=== PATIENT | female | born 1995 | race Caucasian/White ===

== ENCOUNTER 2024-05-20 12:46 | Outpatient (CLI) | payer BC, SELFPAY ==
--- NOTE | 2024-05-20 13:00 | CRLHL7_ITS ---
For Patients: As a result of the Century Cures Act, medical imaging exams and procedure reports are released immediately into your electronic medical record. You may view this report before your referring provider. If you have questions, please contact your health care provider. OB ULTRASOUND INDICATION: Dating and viability. TECHNIQUE: Real time tobias scale imaging of the fetus was performed. Transvaginal. LMP: Unknown (recent miscarriage before this cycle). Previous US: No. CRL: 2.1 cm. 8 w 5 d. DILIP: 12/25/2024. FHR: 183 BPM. Gestational sac: 3.8 cm. Appears within normal limits. Yolk sac: 4.2 mm. Right ovary: 3.5 x 2.6 x 3.3 cm. CL. Left ovary: 3.7 x 2.3 x 2.0 cm. IMPRESSION: 1. Single living intrauterine with sonographic gestational age 8 weeks 5 days and sonographic due date 12/25/2024. Exam performed by transvaginal technique. 2. Inferior subchorionic hemorrhage measures 1.8 x 1.2 x 3.0 cm. 3. Incidental corpus luteal cyst right ovary. Blair Gillespie M.D. Diagnostic Radiologist [email or web address] RAGHAV/[email or web address] delaney/Dictated by: Blair Gillespie MD @ 05/21/2024 9:57:00 AM (Electronically Signed)
== END 2024-05-20 12:47 | disposition home or self-care (01) ==
LOC: US 12:51
PROVIDERS: PCP Advanced Practice Midwife; Visit Provider Advanced Practice Midwife
DX: O34.81 Maternal care for other abnormalities of pelvic organs, first trimester (principal); O20.9 Hemorrhage in early pregnancy, unspecified; N83.11 Corpus luteum cyst of right ovary; Z3A.08 8 weeks gestation of pregnancy; F12.90 Cannabis use, unspecified, uncomplicated
CPT/HCPCS: 76817; 80306; 87086

== ENCOUNTER 2024-05-20 13:54 | Outpatient (CLI) | payer BC, SELFPAY | END 2024-05-20 13:55 | disposition home or self-care (01) | PROVIDERS: PCP Advanced Practice Midwife; Visit Provider Advanced Practice Midwife | DX: Z34.91 Encounter for supervision of normal pregnancy, unspecified, first trimester (principal); F12.90 Cannabis use, unspecified, uncomplicated | CPT/HCPCS: 80306; 87086 ==

== ENCOUNTER 2024-06-03 09:21 | Outpatient (CLI) | payer BC, SELFPAY | END 2024-06-03 09:22 | disposition home or self-care (01) | LOC: NFLDREF 06-07 03:03 | PROVIDERS: Visit Provider Advanced Practice Midwife | DX: O26.899 Other specified pregnancy related conditions, unspecified trimester (principal); R03.0 Elevated blood-pressure reading, without diagnosis of hypertension | CPT/HCPCS: 82565; 83020; 83021; 84450; 84460; 84520; 84550; 85660; 86592; 86703; 86704; 86706; 86762; 86787; 86803; 86850; 86900; 86901; 87340 ==

== ENCOUNTER 2024-06-28 10:15 | Outpatient (CLI) | payer BC, SELFPAY | END 2024-06-28 10:16 | disposition home or self-care (01) | LOC: NFLDREF 06-30 01:30 | PROVIDERS: Visit Provider Advanced Practice Midwife | DX: R03.0 Elevated blood-pressure reading, without diagnosis of hypertension (principal) | CPT/HCPCS: 82570; 84156 ==

== ENCOUNTER 2024-08-12 12:56 | Outpatient (CLI) | payer BC, SELFPAY ==
--- NOTE | 2024-08-12 13:00 | CRLHL7_ITS ---
For Patients: As a result of the Century Cures Act, medical imaging exams and procedure reports are released immediately into your electronic medical record. You may view this report before your referring provider. If you have questions, please contact your health care provider. INDICATION: survey TECHNIQUE: Conventional transabdominal two-dimensional grayscale ultrasound examination COMPARISON: None FINDINGS: There is a living fetus with gestational age of 20 weeks 5 days by 1st trimester ultrasound dating is 21 weeks 1 day by today`s measurements. EDC based on 1st trimester ultrasound dating is 12/25/2024. BPD: 5.2 cm, 21 weeks 6 days Head circumference: 18.9 cm, 21 weeks 1 day Abdominal circumference: 14.9 cm, 20 weeks 1 day Femur length: 3.7 cm, 21 weeks 4 days HC/AC: 1.27 The weight is estimated at 384 grams, the 55th percentile. The heart rate is measured at 144 beats per minute and the rhythm appears regular. The head is grossly intact. The spine is suboptimally visualized. The nose and upper lip are suboptimally visualized as is the heart. The heart and stomach appear to be on the same side. The diaphragm is intact. The kidneys are suboptimally visualized. A bladder is noted. The cord insertion is normal and three cord vessels are noted. Four extremities are demonstrated. The hands and feet are suboptimally visualized. The amniotic fluid volume is within normal limits. The placenta is anterior with no evidence of previa. The cervical length is normal at 4.4 cm. IMPRESSION: 1. Living fetus with gestational age of 20 weeks 5 days by 1st trimester ultrasound dating is 21 weeks 1 day by today`s measurements. EDC based on 1st trimester ultrasound dating is 12/25/2024. 2. No anomaly demonstrated. However, the spine, nose/lips, heart, kidneys, hands and feet suboptimally visualized. A limited follow up exam in 4 weeks is suggested. Dictated by Cristobal Brito MD @ 08/13/2024 6:00:06 AM (Electronically Signed)
== END 2024-08-12 12:57 | disposition home or self-care (01) ==
LOC: US 12:56
PROVIDERS: Visit Provider Obstetrics & Gynecology
DX: Z34.92 Encounter for supervision of normal pregnancy, unspecified, second trimester (principal); Z3A.21 21 weeks gestation of pregnancy
CPT/HCPCS: 76805

== ENCOUNTER 2024-08-25 19:20 | Outpatient (CLI) | payer BC, SELFPAY | END 2024-08-25 20:04 | disposition home or self-care (01) | LOC: OB CLI 19:21 → OB 19:22 | PROVIDERS: Visit Provider Obstetrics & Gynecology | DX: O36.8320 Maternal care for abnormalities of the fetal heart rate or rhythm, second trimester, not applicable or unspecified (principal); Z3A.22 22 weeks gestation of pregnancy | CPT/HCPCS: 76815; G0463 ==

== ENCOUNTER 2024-09-09 11:12 | Outpatient (CLI) | payer BC, SELFPAY ==
--- NOTE | 2024-09-09 11:15 | CRLHL7_ITS ---
For Patients: As a result of the Century Cures Act, medical imaging exams and procedure reports are released immediately into your electronic medical record. You may view this report before your referring provider. If you have questions, please contact your health care provider. OB ULTRASOUND FOLLOW-UP. 09/09/2024 CLINICAL HISTORY: Follow-up anatomy. COMPARISON: 08/12/2024, 05/20/2024. TECHNIQUE: Real time tobias scale imaging of the fetus was performed transabdominally. FINDINGS: GESTATION: Single. CERVIX: Visualized. POSITIONING: Vertex. AMNIOTIC FLUID: 3.2 cm SDP. PLACENTA: Technique: TA. Placenta Position: Anterior. DOPPLERS: Heart Rate: 145 bpm. IMPRESSION: 1. Normal heart, including the four chamber view, RVOT, LVOT, three vessel view and three vessel trachea view. 2. Normal feet, kidneys, spine, nose and lips. Normal visualized hands. Blair Gillespie M.D. Diagnostic Radiologist [email or web address] Transcribed: 2:32 pm DW/Dictated by: Blair Gillespie MD @ 09/09/2024 1:43:00 PM (Electronically Signed)
== END 2024-09-09 11:13 | disposition home or self-care (01) ==
LOC: US 11:13
PROVIDERS: Visit Provider Obstetrics & Gynecology
DX: Z36.2 Encounter for other antenatal screening follow-up (principal)
CPT/HCPCS: 76816

== ENCOUNTER 2024-10-07 11:29 | Outpatient (CLI) | payer BC, SELFPAY ==
--- NOTE | 2024-10-07 11:15 | CRLHL7_ITS ---
For Patients: As a result of the Century Cures Act, medical imaging exams and procedure reports are released immediately into your electronic medical record. You may view this report before your referring provider. If you have questions, please contact your health care provider. OB ULTRASOUND, 10/07/2024 DILIP by US: 12/25/2024. GA: 28 w, 5 d. Single. Comparison: 09/09/2024, 08/12/2024, 05/20/2024. INDICATION: Growth for the THC, nicotine use, BMI. TECHNIQUE: Real time tobias scale imaging of the fetus was performed. Transabdominal. CERVIX: Not visualized. POSITIONING: Vertex. AMNIOTIC FLUID: 4.8 cm. SDP (N: greater than 2 x 1 cm) PLACENTA: Technique: Transabdominal. PLACENTA POSITION: Anterior. DOPPLER: heart rate: 147 bpm. BIOMETRY: BPD: 7.7 cm. 30 w, 5 d, 91.5 percent. HC: 28.6 cm. 31 w, 3 d, 90.6 percent. AC: 26.7 cm. 30 w, 6 d, 93.4 percent. FL: 5.8 cm. 30 w, 2 d, 80.0 percent. FL/AC ratio: 21.71 percent. HC/AC ratio: 1.07. EFW: 1627 g. Weight: 3 lbs, 9 oz. age by this US: 30 w, 6 d. DILIP by this US: 12/10/2024. Percentile by DILIP: 96.1 percent. IMPRESSION: 1. Sonographic gestational age 30 weeks 6 days and sonographic due date 12/10/2024. Sonographic age is 15 days ahead of the clinical age. 2. Estimated weight 96th percentile. Abdominal circumference 93rd percentile. Blair Gillespie M.D. Diagnostic Radiologist [email or web address] RAGHAV/[email or web address] JR/Dictated by: Blair Gillespie MD @ 10/11/2024 5:45:00 AM (Electronically Signed)
== END 2024-10-07 11:30 | disposition home or self-care (01) ==
PROVIDERS: Visit Provider Obstetrics & Gynecology
DX: O99.323 Drug use complicating pregnancy, third trimester (principal); F12.10 Cannabis abuse, uncomplicated; O99.213 Obesity complicating pregnancy, third trimester; O36.63X0 Maternal care for excessive fetal growth, third trimester, not applicable or unspecified; Z72.0 Tobacco use; Z3A.28 28 weeks gestation of pregnancy
CPT/HCPCS: 76816

== ENCOUNTER 2024-10-07 12:16 | Outpatient (CLI) | payer BC, SELFPAY | END 2024-10-07 12:17 | disposition home or self-care (01) | PROVIDERS: Visit Provider Obstetrics & Gynecology | DX: O26.893 Other specified pregnancy related conditions, third trimester (principal); R03.0 Elevated blood-pressure reading, without diagnosis of hypertension; Z3A.28 28 weeks gestation of pregnancy | CPT/HCPCS: 82565; 82570; 84156; 84450; 84460; 84520; 86592 ==

== ENCOUNTER 2024-10-12 13:28 | Outpatient (CLI) | payer BC, SELFPAY ==
--- NOTE | 2024-10-12 13:45 | CRLHL7_ITS ---
For Patients: As a result of the Century Cures Act, medical imaging exams and procedure reports are released immediately into your electronic medical record. You may view this report before your referring provider. If you have questions, please contact your health care provider. INDICATION: BMI TECHNIQUE: Ultrasound OB pelvis transabdominal. Real-time tobias-scale imaging of the fetus was performed with color Doppler and spectral Doppler analysis of the umbilical artery without stress testing. COMPARISON: 10/07/2024 FINDINGS: Sonographic imaging demonstrates a single living intrauterine gestation. Fetus demonstrates a regular cardiac rate of 142 beats per minute. Fetus has a cephalic orientation. The placenta lies anterior. Amniotic fluid volume appears normal with a MVP of 3.7 cm. breathing movements, motion, and tone were all observed. IMPRESSION: Single viable intrauterine with a biophysical profile 12/10. Dictated by Ranjit Proctor MD @ 10/12/2024 3:15:57 PM (Electronically Signed)
== END 2024-10-12 13:29 | disposition home or self-care (01) ==
LOC: US 13:29
PROVIDERS: Visit Provider Obstetrics & Gynecology
DX: O99.210 Obesity complicating pregnancy, unspecified trimester (principal); Z68.41 Body mass index [BMI] 40.0-44.9, adult
CPT/HCPCS: 76819; 82565; 84450; 84460

== ENCOUNTER 2024-10-18 10:13 | Outpatient (CLI) | payer BC, SELFPAY | END 2024-10-18 10:14 | disposition home or self-care (01) | LOC: NFLDREF 10-22 01:21 | PROVIDERS: Visit Provider Obstetrics & Gynecology | DX: O10.913 Unspecified pre-existing hypertension complicating pregnancy, third trimester (principal); Z3A.30 30 weeks gestation of pregnancy | CPT/HCPCS: 82570; 84156 ==

== ENCOUNTER 2024-10-19 13:52 | Outpatient (CLI) | payer BC, SELFPAY ==
--- NOTE | 2024-10-19 14:00 | CRLHL7_ITS ---
For Patients: As a result of the Cures Act, medical imaging exams and procedure reports are released immediately into your electronic medical record. You may view this report before your referring provider. If you have questions, please contact your health care provider. OB ULTRASOUND DILIP by US: 12/25/2024. GA: 30 w, 3 d. Single. Comparison: 10/12/2024, 10/07/2024, 09/09/2024. INDICATION: High BMI and preeclampsia. TECHNIQUE: Real time grayscale imaging of the fetus was performed. Transabdominal. CERVIX: Not visualized. POSITIONING: Vertex. AMNIOTIC FLUID: 2.4 cm. SDP (N: greater than 2 x 1 cm) BIOPHYSICAL PROFILE: 2: Gross body movements 2: tone 2: Respiratory activity 2: Amniotic fluid SDP (N: greater than 2 x 1 cm) 8/8: Total score PLACENTA: Technique: Transabdominal. PLACENTA POSITION: Anterior. DOPPLER: heart rate: 152 bpm. IMPRESSION: Normal biophysical profile score 8/8. Blair Gillespie M.D. Diagnostic Radiologist [email or web address] RAGHAV/[email or web address] delaney/Dictated by: Blair Gillespie MD @ 10/20/2024 7:31:00 AM (Electronically Signed)
== END 2024-10-19 13:53 | disposition home or self-care (01) ==
LOC: US 13:52
PROVIDERS: Visit Provider Obstetrics & Gynecology
DX: O14.93 Unspecified pre-eclampsia, third trimester (principal); Z3A.30 30 weeks gestation of pregnancy
CPT/HCPCS: 76819; 82565; 84450; 84460

== ENCOUNTER 2024-10-26 11:32 | Outpatient (CLI) | payer BC, SELFPAY ==
--- NOTE | 2024-10-26 11:30 | CRLHL7_ITS ---
For Patients: As a result of the Century Cures Act, medical imaging exams and procedure reports are released immediately into your electronic medical record. You may view this report before your referring provider. If you have questions, please contact your health care provider. OB ULTRASOUND BIOPHYSICAL PROFILE DILIP by US: 12/25/2024. GA: 31 w, 3 d. Single. Comparison: 10/19/2024, 10/12/2024, 10/07/2024. INDICATION: Preclampsia and BMI 44.0-44.9. TECHNIQUE: Real time tobias scale imaging of the fetus was performed. Transabdominal. CERVIX: Not visualized. POSITIONING: Vertex. AMNIOTIC FLUID: 4.3 cm. SDP (N: greater than 2 x 1 cm) BIOPHYSICAL PROFILE: Total score: 2. Gross body movements: 2. tone: 2. Respiratory activity: 2. Amniotic fluid: 2. (SDP N: greater than 2 x 1 cm) Total Score: 8/8. PLACENTA: Technique: Transabdominal. PLACENTA POSITION: Anterior. DOPPLER: heart rate: 145 bpm. SURVEY: Observed Structures. Head: Yes. Face: Yes. Spine: Yes. Stomach: Yes. Kidneys: Yes. Cord insertion: Yes. Bladder: Yes. Upper extremities: Yes. Lower extremities: Yes. Four chamber heart: Yes LVOT: Yes. RVOT: Yes. 3VV: Yes. 3VTV: Yes. Cord into PL location: Yes. INT OS to Placenta Tip: Yes. IMPRESSION: Biophysical profile 12/10. Blair Gillespie M.D. Diagnostic Radiologist [email or web address] RAGHAV/[email or web address] JR/Dictated by: Blair Gillespie MD @ 10/26/2024 12:40:00 PM (Electronically Signed)
--- OUTSIDE RECORDS SUMMARY | 2024-10-26 12:34 | XMS_ITS | Clinical Summary ---
Author Organization [facility] Address [address] [place] [address] Care Team Providers Care Wire Brush Maker Name Role Phone Giana Pham MD Primary Care Provider [phone] Allergies Active Allergy Reactions Criticality Noted Date Comments Amoxicillin Rash 07/15/2006 Sulfamethoxazole-Trimethoprim Itching 2014 Penicillins Hives 10/15/2006 Medications ondansetron (ZOFRAN) 8 mg tabletIndications :Acute intractable headache, unspecified headache type Take 1 Tablet (8 mg) by mouth every 8 hours if needed for Nausea/Vomitin g. 30 Tablet 3 Active levalbuterol (XOPENEX HFA) 45 mcg/actuation inhalerIndication s:Environmental allergies INHALE 1 TO 2 PUFFS BY MOUTH EVERY 4 HOURS NEEDED FOR SHORTNESS OF BREATH FOR WHEEZING 1 Each 3 Active fluticasone propion-salmetero L (Advair Diskus) 250-50 mcg/Dose diskus inhalerIndication s:Mild persistent asthma with exacerbation (HC) Inhale 1 Puff by mouth two times daily. 60 Each 3 Active varenicline (CHANTIX DOSEPAK) 0.5 mg (11)- 1 mg (42) tabletIndications :Tobacco use Days 1-3 take 0.5mg once daily; Days 4-7 take 0.5mg twice daily; then increase to 1mg twice daily. Take with meals. 1 Packet 3 Active varenicline (CHANTIX) 1 mg tabletIndications :Tobacco use Take 1 mg by mouth two times daily with meals. 84 Tablet 1 3 Active aspirin (ECOTRIN) 81 mg enteric coated tablet Take 81 mg by mouth once daily. Active Active Problems Problem Noted Date Diagnosed Date ASCUS of cervix with negative high risk HPV 03/06 Overview (04/20/2021): 03/30/2021 ASCUS/HPV Negative. Plan: Pap/HPV due 03/2024 Irregular menses 05/27/2018 Major depression 07/06/2013 Estimated Date of Delivery Comme nts Yes 12/25/2024 Resolved Problems Problem Noted Date Diagnosed Date Resolved Date IUD contraception 01/27/2015 11/13/2017 Post depression 10/07/201405/27 Breech presentation, antepartum 09/21/2014 10/07/2014 Two vessel umbilical cord, antepartum 09/21/2014 10/07/2014 Supervision of other normal 04/19/2014 10/07/2014 Overview (09/05/2014): First : teen: care started at 20 weeks 2 vessel cord: confirmed by MFM at 28 weeks: growth ultrasounds recommended, testing at 32 weeks. 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 cleared 09/05/2014 No active medical problems 08/29/2011 1 Immunizations Immunization Administration Dates Next Due COVID-19 vaccine ([employer] NTech 30mcg/0.3mL) PF, MDV 06/24/2020,06/01/2020 DTP 01/13/2001, 8,1996,07/09,1996 HIB PRP-OMP (PedvaxHIB) 06/28/1997,09/10,1996,05/14 Hepatitis B (Peds) 10/15/2006, 7,1996,03/12 Influenza, IIV3 (Age >=3 years) 04/27/2012 Influenza, IIV4 03/30/2021,03/06/2020 MMR 10/15/2006,01/13/2001,03/16/1997 Meningococcal Vaccine (Menactra) 04/27/2012 Oral Polio Vaccine 01/13/2001, 8,1996,07/09,1996 Tdap 08/03/2014,10/15/2006 Varicella Vaccine 03/08/2010,06/28/1997 Family History Medical History Relation Name Comments Diabetes Father Diabetes Mother Hypertension Mother Other Mother depression, cecile izophrenia Relation Name Status Comments Daughter Alive Father Alive Maternal Grandmother Alive Mother Alive Social History Tobacco Use Types Packs/Day Years Used Date Smoking Tobacco: Every Day Cigarettes 1 10.6 Started: 04/04/2014 Smokeless Tobacco: Never Tobacco Cessation:Ready to Q uit: Yes; Counseling Given: Yes Comments:advised to see pcp when ready Alcohol Use Standard Drinks/Week Comments Yes 0 (1 standard drink = 0.6 oz pur e alcohol) occ PHQ-2 Answer Date Recorded PHQ-2 TOTAL SCORE 0 02/11/2023 Social Connections Answer Date Recorded Frequency of Communication with Friends and Fami ly 0 06/13/2022 Financial Resource Strain Answer Date R ecorded Difficulty of Paying Living Expenses 3 06/13/2022 Difficulty of Paying Living Expenses Not on file 06/13/2022 Food Insecurity Answer Date Recorded Worried About Running Out of Food in the Last Ye ar 1 06/13/2022 Transportation Needs Answer Date Record ed Lack of Transportation (Medical) 1 06/13/2022 Housing Stability Answer Date Recorded Unable to Pay for Housing in the Last Year 1 06/13/2022 Estimated Date of Delivery Comme nts Yes 12/25/2024 Sex and Gender Information Value Date Recorded Sex Assigned at Not on file Legal Sex Female 5:39 AM SALES ENGINEER ACCOUNT MANAGER Gender Identity Not on file Sexual Orientation Not on file Occupation Industry Job Start Date Job End Date [employer] student Not on file Not on file Not on file Not on file Not on file Not on file Not on file Obstetrics History Para Term AB IAB SAB Ectopic Multiple Livin g Live Births 2 1 1 1 1 Date Outcome GA Total Labor Labor/2nd/3rd Weight Sex Type Anes PTL Iliana A1 A5 Name Clin 015 Term 39w 0d 3.23 kg (7 lb 2 oz) F C-Sec tion Living 9 10 BG JULIET(Viridiana MEJIA ) Delivery Location:[facility] Current Last Filed Vital Signs Vital Sign Reading Time Taken Comments Blood Pressure 131/63 07/08/2024 12:13 PM SALES ENGINEER ACCOUNT MANAGER Pulse 104 07/08/2024 12:13 PM SALES ENGINEER ACCOUNT MANAGER Temperature 36.6 C (97.9 F) 07/08/2024 12:13 PM SALES ENGINEER ACCOUNT MANAGER Respiratory Rate 20 07/08/2024 12:1 3 PM SALES ENGINEER ACCOUNT MANAGER Oxygen Saturation 96% 07/08/2024 12: 13 PM SALES ENGINEER ACCOUNT MANAGER Inhaled Oxygen Concentration - - Weight 109.5 kg (241 lb 6.4 oz) 025 12:13 PM SALES ENGINEER ACCOUNT MANAGER Height 167.6 cm (5' 6) 02/11/2023 3:12 PM CDT Body Mass Index 38.96 02/11/2023 3:12 PM CDT Plan of Treatment Health Maintenance Due Date Last Done Comments Hepatitis C screening for ag e 18-79 2014 Pneumococcal series for age 6-49 (1 of 2 - PCV) 2015 COVID-19 vaccine series ( season) 2024 06/24/2020, 06/01/2020 BMI (ht and wt on same day) for age 18+ 02/12/2024 02/11/2023, 10/15/2022, 09/10/2021, Additional history exists Depression screening for age 12+ 02/12/2024 02/11/2023, 05/08/2021, 03/30/2021, Additional history exists Pap test for age 21-65 03/30/2024 , 03/30/2021, 11/13/2017 Tetanus booster 08/03/2024 08/03/2014, 10/15/2006 Influenza Vaccine (Season Ended) 2025 03/30/2021, 03/06/2020, 04/27/2012 Hepatitis B series for 19+ Completed 10/15, 1996, 1996, Additional history exists HIV for age 15-65 Completed 05/20/2014 Tdap Completed 08/03/2014, 10/15/2006 RSV vaccine for adults or (No Doses Required) Completed Goals Goal Patient Goal Type Associated Problems Recent Progress Patient-Stated? Author BLOOD PRESSURE - MAINTAINS BP less than 140/90 Blood Pressure No Eduard Garduno MD Procedures Procedure Name Priority Date/Time Associated Diagnosis Comments HPV HIGH RISK Routine 03/30/2021 11:51 AM SALES ENGINEER ACCOUNT MANAGER Screening for malignant neoplasm of cervix ANTI HIV 1/2 Routine 05/20/2014 3:12 PM SALES ENGINEER ACCOUNT MANAGER Supervision of other normal (HC) from Last 3 Months or Most Recently Relevant to Health Maintenance Results * HPV HIGH RISK (03/30/2021 11:51 AM SALES ENGINEER ACCOUNT MANAGER) TYPE 16 Negative Negative 04/17/2021 11:25 AM SALES ENGINEER ACCOUNT MANAGER [facility] TYPE 18 Negative Negative 04/17/2021 11:25 AM SALES ENGINEER ACCOUNT MANAGER [facility] OTHER HIGH RISK TYPES Negative Negative 04/17/2021 11:25 AM SALES ENGINEER ACCOUNT MANAGER [facility] Other (Cervical) Non-Blood / Unknown 03/30/2021 11:51 AM SALES ENGINEER ACCOUNT MANAGER 04/16/2021 10:21 AM SALES ENGINEER ACCOUNT MANAGER Narrative [facility] - 04/17/2021 11:25 AM SALES ENGINEER ACCOUNT MANAGER HPV types 16, 18, 31, 33, 35, 39, 45, 51, 52, 56, 58, 59, 66 and 68 DNA were undetectable or below the pre-set threshold. Methodology: Ag Autumn 4800 HPV Test us Giana Pham MD MICROBIOLOGY Final Resu lt [facility] [address] [place] [address], [place] * ANTI HIV 1/2 [21798.0] (05/20/2014 3:12 PM SALES ENGINEER ACCOUNT MANAGER) HIV-1/HIV-2 ANTIBODY Non-Reacti ve Non-Reacti ve 05/20/2014 8:13 PM SALES ENGINEER ACCOUNT MANAGER [facility] Blood specimen (specimen) BLOOD SPECIMEN / Unknown Venipuncture / Unknown 05/20/2014 3:12 PM SALES ENGINEER ACCOUNT MANAGER 05/20/2014 3:12 PM SALES ENGINEER ACCOUNT MANAGER Narrative [facility] - 05/20/2014 8:13 PM SALES ENGINEER ACCOUNT MANAGER HIV-1 p24 and HIV-1/HIV-2 Ab not detected us Giana Pham MD SEND OUTS Final Resu lt [facility] [address] [place] [address], from Last 3 Months or Most Recently Relevant to Health Maintenance Insurance [facility] Advance Directives * Full Code (Latest Code Status on File) Date Activated Date Inactivated Comments 05/31/2021 8:01 AM 05/31/2021 3:16 PM Question Answer Comments Code Status Discussion: Reviewed Preferences * Full Code Date Activated Date Inactivated Comments 09/23/2014 5:35 AM 09/26/2014 12:41 PM * Full Code Date Activated Date Inactivated Comments 06/03/2014 5:35 PM 06/04/2014 5:40 AM * Full Code Date Activated Date Inactivated Comments 05/30/2014 10:27 AM 05/30/2014 2:29 PM Care Teams Wire Brush Maker Relationship Specialty Start Date End Date Giana Pham MD [address] [facility] [place] [address] PCP - General Family Practice 04/18/14
--- OUTSIDE RECORDS SUMMARY | 2024-10-27 01:02 | XMS_ITS | Clinical Summary ---
Author Organization [facility] Address [address] [place] [address] Care Team Providers Care Golf Caddy Name Role Phone Giana Pham MD Primary Care Provider +1- [phone] Allergies Active Allergy Reactions Criticality Noted Date [...] Immunization Administration Dates Next Due COVID-19 vaccine ([employer] NTech 30mcg/0.3mL) PF, MDV 06/24/2020,06/01/2020 DTP 01/13/2001, [...] on file Legal Sex Female 5:39 AM BED MANAGER Gender Identity Not on file Sexual [...] 9 10 BG JULIET(Viridiana MEJIA ) Delivery Location[facility] Current Last Filed Vital Signs Vital Sign Reading Time Taken Comments Blood Pressure 131/63 07/08/2024 12:13 PM BED MANAGER Pulse 104 07/08/2024 12:13 PM BED MANAGER Temperature 36.6 C (97.9 F) 07/08/2024 12:13 PM BED MANAGER Respiratory Rate 20 07/08/2024 12:1 3 PM BED MANAGER Oxygen Saturation 96% 07/08/2024 12: 13 PM BED MANAGER Inhaled Oxygen Concentration - - Weight 109.5 kg (241 lb 6.4 oz) 025 12:13 PM BED MANAGER Height 167.6 cm (5' 6) 02/11/2023 [...] HPV HIGH RISK Routine 03/30/2021 11:51 AM BED MANAGER Screening for malignant neoplasm of cervix ANTI HIV 1/2 Routine 05/20/2014 3:12 PM BED MANAGER Supervision of other normal (HC) from Last 3 Months or Most Recently Relevant to Health Maintenance Results * HPV HIGH RISK (03/30/2021 11:51 AM BED MANAGER) TYPE 16 Negative Negative 04/17/2021 11:25 AM BED MANAGER [facility] TYPE 18 Negative Negative 04/17/2021 11:25 AM BED MANAGER [facility] OTHER HIGH RISK TYPES Negative Negative 04/17/2021 11:25 AM BED MANAGER [facility] Other (Cervical) Non-Blood / Unknown 03/30/2021 11:51 AM BED MANAGER 04/16/2021 10:21 AM BED MANAGER Narrative [facility] - 04/17/2021 11:25 AM BED MANAGER HPV types 16, 18, 31, 33, 35, 39, 45, 51, 52, 56, 58, 59, 66 and 68 DNA were undetectable or below the pre-set threshold. Methodology: Ag Autumn 4800 HPV Test us Giana Pham MD MICROBIOLOGY Final Resu lt [facility] [address] [place] [address], [place] * ANTI HIV 1/2 [85748.0] (05/20/2014 3:12 PM BED MANAGER) HIV-1/HIV-2 ANTIBODY Non-Reacti ve Non-Reacti ve 05/20/2014 8:13 PM BED MANAGER [facility] Blood specimen (specimen) BLOOD SPECIMEN / Unknown Venipuncture / Unknown 05/20/2014 3:12 PM BED MANAGER 05/20/2014 3:12 PM BED MANAGER Narrative [facility] - 05/20/2014 8:13 PM BED MANAGER HIV-1 p24 and HIV-1/HIV-2 Ab not detected us Giana Pahm MD SEND OUTS Final Resu lt [facility] [address] [place] [address], from Last 3 Months or Most Recently Relevant to Health Maintenance Insurance [facility] Advance Directives * Full Code (Latest Code [...] 10:27 AM 05/30/2014 2:29 PM Care Teams Golf Caddy Relationship Specialty Start Date End Date Giana Pham MD [address] [facility] [place] [address] PCP - General Family Practice 04/18/14
== END 2024-10-26 11:33 | disposition home or self-care (01) ==
LOC: US 11:32
PROVIDERS: Visit Provider Obstetrics & Gynecology
DX: O14.93 Unspecified pre-eclampsia, third trimester (principal); O99.213 Obesity complicating pregnancy, third trimester; Z3A.31 31 weeks gestation of pregnancy
CPT/HCPCS: 76819; 82565; 84450; 84460

== ENCOUNTER 2024-11-02 12:45 | Outpatient (CLI) | payer BC, SELFPAY | END 2024-11-02 12:46 | disposition home or self-care (01) | LOC: NFLDREF 11-06 00:38 | PROVIDERS: Visit Provider Obstetrics & Gynecology | DX: O10.913 Unspecified pre-existing hypertension complicating pregnancy, third trimester (principal); Z3A.32 32 weeks gestation of pregnancy | CPT/HCPCS: 82565; 84450; 84460 ==

== ENCOUNTER 2024-11-02 12:48 | Outpatient (CLI) | payer BC, SELFPAY ==
--- NOTE | 2024-11-02 13:00 | CRLHL7_ITS ---
For Patients: As a result of the Cures Act, medical imaging exams and procedure reports are released immediately into your electronic medical record. You may view this report before your referring provider. If you have questions, please contact your health care provider. OBSTETRICAL ULTRASOUND ??? BIOPHYSICAL PROFILE, 11/02/2024 INDICATION: Preeclampsia and high BMI. CLINICAL HISTORY: DILIP by US: 12/25/2024 Gestational Age: 32 weeks 3 days COMPARISON: 10/26/2024, 10/19/2024, 10/12/2024. TECHNIQUE: Real-time tobias-scale transabdominal imaging of the fetus was performed. FINDINGS: Fetus: Single Cervix: Not visualized positioning: Vertex Amniotic Fluid: 4.2 cm SDP BIOPHYSICAL PROFILE: Gross body movements: 2 tone: 2 Respiratory activity: 2 Amniotic fluid SDP: 2 Total score: 8 Placenta technique: Transabdominal Placenta position: Anterior heart rate: 134 bpm BIOMETRY: BPD: 8.5 cm, 34 weeks 2 days, 90.2% HC: 30.7 cm, 34 weeks 1 day, 59.5% AC: 31.9 cm, 35 weeks 6 days, >97% FL: 6.1 cm, 31 weeks 3 days, 14.7% FL/AC Ratio: 18.9% HC/AC ratio: 1.0 EFW: 2415 grams; 5 lbs. 5 oz. age by this ultrasound: 34 weeks 0 days DILIP by this ultrasound: 12/14/2024 Percentile by DILIP: 92.5% IMPRESSION: 1. Sonographic gestational age 34 weeks 0 days and sonographic due date 12/14/2024. Sonographic age is 11 days ahead of the clinical age. 2. Estimated weight is 93rd percentile. Abdominal circumference is greater than 97th percentile. 3. Normal biophysical profile score of 8/8. BLAIR GAUTHIER M.D. Diagnostic Radiologist [email or web address] Transcribed: 5:[address]/Dictated by: Blair Gauthier MD @ 11/02/2024 4:09:00 PM (Electronically Signed)
--- OUTSIDE RECORDS SUMMARY | 2024-11-03 00:46 | XMS_ITS | Clinical Summary ---
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 Gender Identity Not on file Sexual Orientation [...] 9 10 BG JULIET(Viridiana MEJIA ) Delivery Location:[facility] Current Last Filed Vital Signs Vital Sign Reading Time Taken Comments Blood Pressure 131/63 07/08/2024 12:13 PM HOOP DRIVING MACHINE OPERATOR Pulse 104 07/08/2024 12:13 PM HOOP DRIVING MACHINE OPERATOR Temperature 36.6 C (97.9 F) 07/08/2024 12:13 PM HOOP DRIVING MACHINE OPERATOR Respiratory Rate 20 07/08/2024 12:1 3 PM HOOP DRIVING MACHINE OPERATOR Oxygen Saturation 96% 07/08/2024 12: 13 PM HOOP DRIVING MACHINE OPERATOR Inhaled Oxygen Concentration - - Weight 109.5 kg (241 lb 6.4 oz) 025 12:13 PM HOOP DRIVING MACHINE OPERATOR Height 167.6 cm (5' 6) 02/11/2023 3:12 [...] Tetanus booster 08/03/2024 08/03/2014, 10/15/2006 Influenza Vaccine (#1) 2025 1, 03/06/2020, 04/27/2012 Hepatitis B series for 19+ Completed 10/15, 1996, 1996, Additional history exists HIV for age 15-65 Completed 05/20/2014 (IA) Tdap Completed 08/03/2014, 10/15/2006 RSV vaccine for adults or (No Doses Required) Completed Goals Goal Patient Goal Type Associated Problems Recent Progress Patient-Stated? 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 DRIVING MACHINE OPERATOR Screening for malignant neoplasm of cervix ANTI HIV 1/2 Routine 05/20/2014 3:12 PM HOOP DRIVING MACHINE OPERATOR Supervision of other normal (HC) from Last 3 Months or Most Recently Relevant to Health Maintenance Results * HPV HIGH RISK (03/30/2021 11:51 AM HOOP DRIVING MACHINE OPERATOR) TYPE 16 Negative Negative 04/17/2021 11:25 AM HOOP DRIVING MACHINE OPERATOR [facility] TYPE 18 Negative Negative 04/17/2021 11:25 AM HOOP DRIVING MACHINE OPERATOR [facility] OTHER HIGH RISK TYPES Negative Negative 04/17/2021 11:25 AM HOOP DRIVING MACHINE [facility]PER[facility] Other (Cervical) Non-Blood / Unknown 03/30/2021 11:51 AM HOOP DRIVING MACHINE OPERATOR 04/16/2021 10:21 AM HOOP DRIVING MACHINE OPERATOR Narrative [facility] - 04/17/2021 11:25 AM HOOP DRIVING MACHINE OPERATOR HPV types 16, 18, 31, 33, 35, 39, 45, 51, 52, 56, 58, 59, 66 and 68 DNA were undetectable or below the pre-set threshold. Methodology: Ag Autumn 4800 HPV Test us Giana Pham MD MICROBIOLOGY Final Resu lt [facility] [address] [place] [address], [place] * ANTI HIV 1/2 [85345.0] (05/20/2014 3:12 PM HOOP DRIVING MACHINE OPERATOR) HIV-1/HIV-2 ANTIBODY Non-Reacti ve Non-Reacti ve 05/20/2014 8:13 PM HOOP DRIVING MACHINE OPERATOR [facility] Blood specimen (specimen) BLOOD SPECIMEN / Unknown Venipuncture / Unknown 05/20/2014 3:12 PM HOOP DRIVING MACHINE OPERATOR 05/20/2014 3:12 PM HOOP DRIVING MACHINE OPERATOR Narrative [facility] - 05/20/2014 8:13 PM HOOP DRIVING MACHINE OPERATOR HIV-1 p24 and HIV-1/HIV-2 Ab not detected us Giana Pham MD SEND OUTS Final Resu lt [facility] [address] [place] [address], from Last 3 Months or Most Recently Relevant to Health Maintenance Insurance [facility] [address] [place] [id number] Advance Directives * Full Code (Latest Code [...] 10:27 AM 05/30/2014 2:29 PM Care Teams Railroad Car Cleaner Relationship Specialty Start Date End Date Giana Pham [facility] [address] [facility] [address] PCP - General Family Practice 04/18/14
== END 2024-11-02 12:49 | disposition home or self-care (01) ==
LOC: US 12:49
PROVIDERS: Visit Provider Obstetrics & Gynecology
DX: O99.213 Obesity complicating pregnancy, third trimester (principal); Z68.41 Body mass index [BMI] 40.0-44.9, adult; O14.93 Unspecified pre-eclampsia, third trimester; O36.63X0 Maternal care for excessive fetal growth, third trimester, not applicable or unspecified; Z3A.32 32 weeks gestation of pregnancy
CPT/HCPCS: 76816; 76819

== ENCOUNTER 2024-11-08 13:14 | Outpatient (CLI) | payer BC, SELFPAY ==
[2024-11-08 13:29] VITALS: BP 134/71; PULSE 103
[2024-11-08 13:42] VITALS: BP 136/70; PULSE 100
[2024-11-08] MEDS: ACETAMINOPHEN 500 MG TABLET 1000 MG PO (13:45)
[2024-11-08 13:57] VITALS: BP 131/68; PULSE 96
[2024-11-08 14:00] LABS: Hematocrit 34.0 % (33.0-51.0); Hemoglobin* 11.5 gm/dL (12.0-16.0); Mean Corpuscular HGB Conc 34 gm/dL (32-36); Mean Corpuscular Hemoglobin 29 pg (26-34); Mean Corpuscular Volume 85 fL (80-100); Red Blood Count 4.01 m/uL (4.00-5.20); White Blood Count* 10.86 K/uL (4.50-11.00)
[2024-11-08 14:12] VITALS: BP 132/66; PULSE 97
[2024-11-08 14:12] LABS: Slide Review Reflex No
[2024-11-08 14:16] LABS: Alanine Aminotransferase* 16 U/L (4-35); Aspartate Amino Transferase* 23 U/L (12-35); Blood Urea Nitrogen* 5 mg/dL (5-24); Creatinine* 0.5 mg/dL (0.5-1.5); Estimated Glomerular Filt Rate 131 ml/min
[2024-11-08 14:43] LABS: Protein Creatinine Ratio Urine 0.32 (0-0.19)
--- NOTE | 2024-11-08 15:33 | PC.OBNST ---
NST Note NST Note Start: 11/08/24 13:17 Freq: ONCE Status: Active Protocol: Document 11/08/24 15:28 [facility] (Rec: 11/08/24 15:31 [facility] Desktop) NST Note 3 Para (# of births) 1 EDC 12/25/24 Gestational Age In 33 Weeks & 2 Days Weeks & Days High Risk Factors High Blood Pressure - Preexisting Patient Presented Headache with Complaint(s) of Other Complaints Blurred vision Reactive Yes Appropriate for Yes Gestational Age RELL Leigh RNC Date 11/08/24 Reactive Yes Appropriate for Yes Gestational Age RELL Moya RNC Date 11/08/24 OB NST charge Yes Complete NST Note Yes via Write Note The provider's electronic signature indicates the NST is reactive/appropriate for gestational age. *Note to provider: If an addendum is required, open the patient's chart and click on the note under the Nurse/Allied Health tab.
== END 2024-11-08 15:05 | disposition home or self-care (01) ==
LOC: OB OUT 13:14 → OB 13:16
PROVIDERS: Visit Provider Obstetrics & Gynecology
DX: O10.913 Unspecified pre-existing hypertension complicating pregnancy, third trimester (principal); R51.9 Headache, unspecified; Z3A.33 33 weeks gestation of pregnancy
CPT/HCPCS: 36415; 59025; 82565; 82570; 84156; 84450; 84460; 84520; 85027; G0463; A9270

== ENCOUNTER 2024-11-09 12:08 | Outpatient (CLI) | payer BC, SELFPAY | END 2024-11-09 12:09 | disposition home or self-care (01) | LOC: NFLDREF 11-11 07:23 | PROVIDERS: Visit Provider Obstetrics & Gynecology | DX: O14.90 Unspecified pre-eclampsia, unspecified trimester (principal) | CPT/HCPCS: 82565; 84450; 84460 ==

== ENCOUNTER 2024-11-09 12:09 | Outpatient (CLI) | payer BC, SELFPAY ==
--- NOTE | 2024-11-09 12:15 | CRLHL7_ITS ---
For Patients: As a result of the Cures Act, medical imaging exams and procedure reports are released immediately into your electronic medical record. You may view this report before your referring provider. If you have questions, please contact your health care provider. OB ULTRASOUND BIOPHYSICAL PROFILE, 11/09/2024 CLINICAL HISTORY: Elevated blood pressures. COMPARISON: 11/02/2024, 10/26/2024, 10/19/2024, 10/12/2024. TECHNIQUE: Real time tobias scale imaging of the fetus was performed. Transabdominal imaging performed. FINDINGS: DILIP by US: 12/25/2024. GA: 33 weeks 3 days. Gestation: Single. Cervix: Not visualized. Positioning: Vertex. Amniotic Fluid: 4.7 cm SDP. BIOPHYSICAL PROFILE Gross Body Movements: 2 Tone: 2 Respiratory Activity: 2 Amniotic Fluid/SDP: 2 Total Score: 8 Placenta: Technique: TA. Placenta Position: Anterior. Dopplers: Heart Rate: 147 bpm. IMPRESSION: Normal biophysical profile score of 8/8. Blair Gillespie M.D. Diagnostic Radiologist [email or web address] Transcribed: 1:21 pm DW/Dictated by: Blair Gillespie MD @ 11/09/2024 1:13:00 PM (Electronically Signed)
== END 2024-11-09 12:10 | disposition home or self-care (01) ==
LOC: US 12:09
PROVIDERS: Visit Provider Obstetrics & Gynecology
DX: O26.893 Other specified pregnancy related conditions, third trimester (principal); R03.0 Elevated blood-pressure reading, without diagnosis of hypertension; O14.90 Unspecified pre-eclampsia, unspecified trimester; Z3A.33 33 weeks gestation of pregnancy
CPT/HCPCS: 76819

== ENCOUNTER 2024-11-12 14:25 | Outpatient (CLI) | payer BC, SELFPAY ==
--- NOTE | 2024-11-12 14:45 | CRLHL7_ITS ---
For Patients: As a result of the Cures Act, medical imaging exams and procedure reports are released immediately into your electronic medical record. You may view this report before your referring provider. If you have questions, please contact your health care provider. OBSTETRICAL ULTRASOUND ??? BIOPHYSICAL PROFILE, 11/12/2024 INDICATION: Nonreactive NST. CLINICAL HISTORY: DILIP by US: 12/25/2024 Gestational Age: 33 weeks 6 days COMPARISON: 11/09/2024, 11/02/2024, 10/26/2024 TECHNIQUE: Real-time tobias-scale transabdominal imaging of the fetus was performed. FINDINGS: Fetus: Single Cervix: Not visualized positioning: Vertex Amniotic Fluid: 4.5 cm SDP BIOPHYSICAL PROFILE: Gross body movements: 2 tone: 2 Respiratory activity: 2 Amniotic fluid SDP: 2 Total score: 8 Placenta technique: Transabdominal Placenta position: Anterior heart rate: 138 bpm IMPRESSION: Normal biophysical profile score of 8/8. BLAIR GAUTHIER M.D. Diagnostic Radiologist [email or web address] Transcribed: 3:[address]/Dictated by: Blair Gauthier MD @ 11/12/2024 3:31:00 PM (Electronically Signed)
== END 2024-11-12 14:26 | disposition home or self-care (01) ==
LOC: US 14:25
PROVIDERS: Visit Provider Obstetrics & Gynecology
DX: O28.8 Other abnormal findings on antenatal screening of mother (principal); Z3A.33 33 weeks gestation of pregnancy
CPT/HCPCS: 76819

== ENCOUNTER 2024-11-16 12:46 | Outpatient (CLI) | payer BC, SELFPAY ==
--- NOTE | 2024-11-16 13:00 | CRLHL7_ITS ---
For Patients: As a result of the Cures Act, medical imaging exams and procedure reports are released immediately into your electronic medical record. You may view this report before your referring provider. If you have questions, please contact your health care provider. OB ULTRASOUND BIOPHYSICAL PROFILE, 11/16/2024 CLINICAL HISTORY: BMI, pre-e. COMPARISON: 11/12/2024, 11/09/2024, 10/26/2024. TECHNIQUE: Real time tobias scale imaging of the fetus was performed. Transabdominal imaging performed. FINDINGS: DILIP by US: 12/25/2024. GA: 34 weeks 3 days. Cervix: Not visualized. Positioning: Vertex. Amniotic Fluid: 4.2 cm SDP. BIOPHYSICAL PROFILE: Gross Body Movements: 2 Tone: 2 Respiratory Activity: 2 Amniotic Fluid SDP: 2 Total Score: 8 Placenta: Technique: TA. Placenta Position: Anterior. Dopplers: Heart Rate: 141 bpm. IMPRESSION: Normal biophysical profile score of 8/8. Blair Gillespie M.D. Diagnostic Radiologist [email or web address] Transcribed: 3:14 pm DW/Dictated by: Blair Gillespie MD @ 11/16/2024 2:58:00 PM (Electronically Signed)
== END 2024-11-16 12:47 | disposition home or self-care (01) ==
LOC: US 12:46
PROVIDERS: Visit Provider Obstetrics & Gynecology
DX: O10.913 Unspecified pre-existing hypertension complicating pregnancy, third trimester (principal); Z3A.34 34 weeks gestation of pregnancy
CPT/HCPCS: 76819

== ENCOUNTER → 2024-11-16 12:50 | Outpatient (BNVA) | payer BC, SELFPAY | LOC: NFLDREF 18:49 | PROVIDERS: Visit Provider Obstetrics & Gynecology | DX: O99.213 Obesity complicating pregnancy, third trimester (principal); O14.93 Unspecified pre-eclampsia, third trimester; Z3A.34 34 weeks gestation of pregnancy | CPT/HCPCS: 82565; 84450; 84460 ==

== ENCOUNTER 2024-11-16 19:13 | Outpatient (CLI) | payer BC, SELFPAY ==
[2024-11-16 19:39] VITALS: BP 136/75; PULSE 107
[2024-11-16 19:46] VITALS: RESP 17; TEMP 36.8
--- NOTE | 2024-11-16 20:14 | PC.OBNST ---
NST Note NST Note Start: 11/16/24 19:37 Freq: ONCE Status: Active Protocol: Document 11/16/24 19:37 [facility] (Rec: 11/16/24 20:13 [facility] No Response) NST Note 3 Para (# of births) 1 EDC 12/25/24 Gestational Age In 34 Weeks & 3 Days Weeks & Days High Risk Factors High Blood Pressure - Preexisting Patient Presented Other with Complaint(s) of Other Complaints increased movement Reactive Yes Appropriate for Yes Gestational Age RN Case RN Date 11/16/24 RN Moi RN Date 11/16/24 OB NST charge Yes Complete NST Note Yes via Write Note The provider's electronic signature indicates the NST is reactive/appropriate for gestational age. *Note to provider: If an addendum is required, open the patient's chart and click on the note under the Nurse/Allied Health tab.
== END 2024-11-16 20:15 | disposition home or self-care (01) ==
LOC: OB OUT 19:13 → OB 19:15
PROVIDERS: Visit Provider Obstetrics & Gynecology
DX: O10.913 Unspecified pre-existing hypertension complicating pregnancy, third trimester (principal); Z3A.34 34 weeks gestation of pregnancy
CPT/HCPCS: 59025; G0463

== ENCOUNTER 2024-11-19 09:03 | Outpatient (CLI) | payer BC, SELFPAY | END 2024-11-19 09:04 | disposition home or self-care (01) | LOC: NFLDREF 11-21 05:47 | PROVIDERS: Visit Provider Obstetrics & Gynecology | DX: O10.913 Unspecified pre-existing hypertension complicating pregnancy, third trimester (principal); Z3A.34 34 weeks gestation of pregnancy | CPT/HCPCS: 82565; 82570; 84156; 84450; 84460; 84520 ==

== ENCOUNTER 2024-11-23 12:51 | Outpatient (CLI) | payer BC, SELFPAY ==
--- NOTE | 2024-11-23 13:00 | CRLHL7_ITS ---
For Patients: As a result of the Century Cures Act, medical imaging exams and procedure reports are released immediately into your electronic medical record. You may view this report before your referring provider. If you have questions, please contact your health care provider. INDICATION: Increased maternal BMI TECHNIQUE: Ultrasound OB pelvis transabdominal. Real-time tobias-scale imaging of the fetus was performed with color Doppler and spectral Doppler analysis of the umbilical artery without stress testing. COMPARISON: 11/16/2024 FINDINGS: Sonographic imaging demonstrates a single living intrauterine gestation. Fetus demonstrates a regular cardiac rate of 167 beats per minute. Fetus has a cephalic orientation. The placenta lies anterior. Amniotic fluid volume appears normal with a MVP of 6.0 cm. breathing movements, motion, and tone were all observed. IMPRESSION: Single viable intrauterine with a biophysical profile 12/10. Dictated by Ranjit Proctor MD @ 11/23/2024 1:18:22 PM (Electronically Signed)
== END 2024-11-23 12:52 | disposition home or self-care (01) ==
LOC: US 12:52
PROVIDERS: Visit Provider Obstetrics & Gynecology
DX: O10.913 Unspecified pre-existing hypertension complicating pregnancy, third trimester (principal); O99.013 Anemia complicating pregnancy, third trimester; O99.213 Obesity complicating pregnancy, third trimester; Z68.41 Body mass index [BMI] 40.0-44.9, adult; Z3A.35 35 weeks gestation of pregnancy
CPT/HCPCS: 76819

== ENCOUNTER 2024-11-23 15:15 | Outpatient (CLI) | payer BC, SELFPAY | END 2024-11-23 15:16 | disposition home or self-care (01) | LOC: NFLDREF 15:16 | PROVIDERS: Visit Provider Obstetrics & Gynecology | DX: O99.210 Obesity complicating pregnancy, unspecified trimester (principal) | CPT/HCPCS: 82565; 82728; 84450; 84460; 87081; 87181; 87653 ==

== ENCOUNTER 2024-11-30 12:10 | Outpatient (CLI) | payer BC, SELFPAY ==
--- NOTE | 2024-11-30 12:15 | CRLHL7_ITS ---
For Patients: As a result of the Century Cures Act, medical imaging exams and procedure reports are released immediately into your electronic medical record. You may view this report before your referring provider. If you have questions, please contact your health care provider. FOLLOW-UP OB ULTRASOUND AND BIOPHYSICAL PROFILE DILIP by US: 12/25/2024. GA: 36 w, 3 d. COMPARISONS: 11/23/2024, 11/16/2024, 11/12/2024. INDICATION: BMI, pre-existing HTN. TECHNIQUE: Real time tobias scale imaging of the fetus was performed, transabdominal. position: Vertex. Cervix: Not visualized. Technique: Transabdominal. Length of closed cervix: 5.4 cm. Placenta/cord: Anterior. Technique: Transabdominal. Heart Rate: 144 bpm. BIOMETRY PROFILE Gross Body Movements: 2. Tone: 2. Respiratory Activity: 2. Amniotic Fluid SDP (N greater than 2x1 cm) TOTAL SCORE: 8/8. BPD: 9.3 cm. 37 w, 6 d, 91.0 percent. HC: 34.6 cm. 40 w, 0 d, 94.1 percent. AC: 35.9 cm. 39 w, 6 d, >97 percent. FL: 7.1 cm. 36 w, 3 d, 48.3 percent. FL/AC ratio: 19.82 percent. HC/AC ratio: 0.96. EFW: 3630 grams, 8 lb, 0 oz. Age by this US: 39 weeks 4 days. DILIP by this US: 12/10/2024. Percentile by DILIP: >97 percent. IMPRESSION: 1. Single live intrauterine gestation at 38 weeks 4 days. DILIP of 12/10/2024. Clinical date 36 weeks 3 day with DILIP of 12/25/2024. 2. Estimated weight is 3630 grams which lies at greater than 97th percentile. Abdominal circumference at greater than 97th percentile. 3. Biophysical profile score is 8/8. Sherron Montano M.D. Diagnostic/Breast Radiologist [email or web address] BISMARK/edmund / DW/Dictated by: Sherron Montano MD @ 12/05/2024 5:47:00 AM (Electronically Signed)
== END 2024-11-30 12:11 | disposition home or self-care (01) ==
LOC: US 12:11
PROVIDERS: Visit Provider Obstetrics & Gynecology
DX: O10.913 Unspecified pre-existing hypertension complicating pregnancy, third trimester (principal); Z68.41 Body mass index [BMI] 40.0-44.9, adult; Z3A.36 36 weeks gestation of pregnancy
CPT/HCPCS: 76816; 76819

== ENCOUNTER 2024-11-30 13:10 | Outpatient (CLI) | payer BC, SELFPAY | END 2024-11-30 13:11 | disposition home or self-care (01) | PROVIDERS: Visit Provider Obstetrics & Gynecology | DX: Z34.93 Encounter for supervision of normal pregnancy, unspecified, third trimester (principal); Z3A.36 36 weeks gestation of pregnancy | CPT/HCPCS: 82565; 82570; 84156; 84450; 84460 ==

== ENCOUNTER 2024-12-02 08:30 | Outpatient (CLI) | payer BC, SELFPAY | END 2024-12-02 08:31 | disposition home or self-care (01) | LOC: NFLDREF 12-03 15:12 | PROVIDERS: Visit Provider Obstetrics & Gynecology | DX: O10.913 Unspecified pre-existing hypertension complicating pregnancy, third trimester (principal); Z3A.36 36 weeks gestation of pregnancy | CPT/HCPCS: 82570; 84156 ==

== ENCOUNTER 2024-12-02 13:10 | Inpatient (IN) | payer BC, SELFPAY ==
[2024-12-02] VITALS (39 sets, daily range): BP systolic 99–183; BP diastolic 61–88; PULSE 64–104; RESP 16; TEMP 36.6–37.1; O2SAT 82–100; BMI 46.7
[2024-12-02 11:59] LABS: Hematocrit 31.3 % (33.0-51.0); Hemoglobin* 10.4 gm/dL (12.0-16.0); Mean Corpuscular HGB Conc 33 gm/dL (32-36); Mean Corpuscular Hemoglobin 28 pg (26-34); Mean Corpuscular Volume 85 fL (80-100); Red Blood Count 3.70 m/uL (4.00-5.20); White Blood Count* 8.98 K/uL (4.50-11.00)
[2024-12-02 12:01] LABS: Slide Review Reflex No
[2024-12-02 12:13] LABS: Alanine Aminotransferase* 13 U/L (4-35); Aspartate Amino Transferase* 22 U/L (12-35); Creatinine* 0.4 mg/dL (0.5-1.5); Estimated Glomerular Filt Rate 138 ml/min
[2024-12-02 12:18] LABS: Cannabinoid Screen Urine Negative (Negative); Methamphetamines Screen Urine Negative (Negative); Tricyclic Antidepressant Urine Negative (Negative)
[2024-12-02] MEDS: MAGNESIUM IV 4 GM/100 ML PIGGYBACK IVPB (13:54)
[2024-12-02] MEDS: LACTATED RINGERS 1000 ML 1,000 ML 1200 ML IV (13:54)
--- NOTE | 2024-12-02 13:59 | PM.PROC ---
Procedure Note Time Seen by Provider: 16:03 Date Seen: 12/02/24 Date of procedure: 12/02/24 Will [facility] bill your pro fee for this procedure?: Yes Procedure: Preoperative diagnosis: 29-year-old 3 para 1011 at 36 and 5/7 weeks admitted for a scheduled repeat low transverse section due to chronic hypertension with superimposed preeclampsia with severe features by blood pressure criteria. Postoperative diagnosis: Same Procedure: Repeat low-transverse section. Anesthesia: Spinal Surgeon: Mary Sullivan MD Theatrical Variety Agent: Not applicable Quantitative blood loss: 875 mL IV fluid: 800 mL Urine output: 250 mL, clear urine at the end procedure Drain(s): Terry to gravity. Specimen: Placenta to pathology Findings: A live male was delivered from the direct OA position at 3:25 p.m.. Apgars were 8 at 1 min and 9 at 5 min, respectively. Infant weight: 7 lb 10 oz. Nuchal cord(s): No. The placenta was delivered spontaneously and complete at 3:27 p.m.. Amniotic fluid: Clear. Normal uterus, fallopian tubes and ovaries were noted. Other findings: Ovaries had a polycystic appearance. Procedure: Sara was taken to the OR where spinal anesthetic was found be adequate. A Terry catheter was placed. The patient was then placed in the dorsal supine position with a leftward tilt. She was then prepped and draped in a normal sterile manner. A Pfannenstiel skin incision was made and carried through sharply to the underlying layer of fascia. Fascia was incised in the midline and this incision carried laterally with Sierra scissors. The superior aspect of fascial incision was grasped with Jean Carlos clamps, tented up, and the rectus muscles dissected off with a combination of blunt and sharp dissection. The inferior aspect of the fascial incision was grasped with Jean Carlos clamps, tented up and again the rectus muscles dissected off with a combination of blunt and sharp dissection. The rectus muscles were in the midline. The peritoneum was entered bluntly. This opening was extended bluntly. An Lorenzo-O self-retaining retractor was placed. A bladder flap was not created. Uterus was incised in a low transverse manner in the midline. This incision carried laterally with blunt pressure on the inferior and superior aspects of the uterine incision. The amniotic sac was ruptured. The 's head and body were delivered atraumatically. The was shown to the patient and her support person. The umbilical was clamped and cut immediately/after a 30-60 second delay. The infant was then handed to waiting pediatric and nursing staff. The placenta was delivered spontaneously. The uterus was cleared of clots and debris. The uterine incision was re-approximated with the uterus in vivo. The 1st layer using 0-Vicryl in a running, locked manner. The 2nd layer using 0-Monocryl in a running, vertical, imbricating layer. Additional sutures needed for hemostasis: No. Excellent hemostasis was confirmed. The Lorenzo retractor was removed. The rectus muscles and peritoneum were not reapproximated. The rectus muscles were then closely inspected to verify hemostasis. Hemostasis was obtained with bipolar cautery. The fascia was then reapproximated using 0-Maxon loop in a running manner. The subcutaneous tissue was then irrigated with saline and hemostasis obtained with bipolar cautery. The subcutaneous tissue was reapproximated using 3-0 plain gut in a running manner, 2 layers. The skin was reapproximated using 4-0 Monocryl in a running subcuticular manner. A silver-containing Mepiplex dressing was applied. The patient tolerated this procedure well. Sponge, lap and instrument counts were correct x2 active to the procedure. Patient was taken to the recovery area in stable condition. The patient received 3 g of IV Ancef prior to skin incision. An operative procedure deep brief was completed at the end of the procedure. Anesthesia: regional Pathology: specimen obtained, sent to pathology Condition: stable Disposition: floor
--- NOTE | 2024-12-02 14:03 | PM.OBHPLI ---
OB - H&P: HPI Labor/Induction History of Present Illness Time Seen by Provider: 14:04 Date Seen: 12/02/24 Chief Complaint: Sara is a 29 year old 3 para 1011 at 36 and 5/7 weeks gestation by LMP consistent with a 1st trimester ultrasound, who presents with chronic hypertension with superimposed severe preeclampsia and repeat low-transverse section. Her preop history and physical was completed by Dr. Ledy Cancino on 11/23/2024. Please see that note for complete details. The patient denies headache, visual disturbance, right upper quadrant pain, nausea/vomiting but endorses several week history of significant edema in both her lower extremities and her hands. Blood pressure at home this morning 174/79. Blood pressures in triage have varied from 145-183/69-80. She meets criteria for severe preeclampsia by blood pressure criteria. Her preeclampsia labs have been normal except her platelets were slightly low at 139 K. 24 hour urine for protein is pending. Chief complaint: maternity : 3 Para: 1 Indications for induction: pre-eclampsia Narrative: Sara Hylton is a 29 year old female Specific Issues/Plans : Vladimir HMaria EugeniaP 11/23 Dr. Cancino # Hx of c/s Desires repeat c/s Previous lower uterine transverse incision, breech presentation; operative note sent to scanning 06/24 Scheduling form filled out for repeat delivery without tubal ligation at 38 6/7 weeks gestation (12/17/2024)-might need to be sooner if needs to continue to increase BP meds/superimposed preeclampsia. # Hx of ASCUS, negative HPV w/ pap 03/30/2021 Overdue: declined during . Need it at 6 week PP # Hx of depression, in remission # Recent weight loss, down 50 lbs in the last year # Prepregnancy BMI 37.5, obesity # Nicotine abuse, smoking 1-3 cigs per day Nicorette inhalers sent to help with smoking cessation. Nicotine patch ordered - unavailable at pharmacy. Tobacco free as of June!! # THC use, stopped at + preg test UDS at NOB- positive for THC #Chronic HTN, with gestational exacerbation at 28 weeks Elevated BP at NOB, and higher than normal much of 2nd trimester No previous diagnosis of HTN Baseline pre-e labs: normal; 24 hour urine with 35 mg protein Repeat HELLP labs 28 weeks: Elevated protein:creatinine. Repeat 24 hour urine 10/18: 284 mg [ ] Repeat 24 hour urine at 36 weeks - if SI move delivery to 37w0d GA Start Nifedipine XL 30mg daily on 11/02, increase to 60mg daily on 11/09/24 - changed to labetalol 200 mg BID on 11/12/24 due to intolerance to nifedipine --> labetalol 300 mg TID on 11/30 Monthly US for growth PreE labs Q visit Twice weekly testing for suspected superimposed preE at this time - revise PRN pending 24 hour urine data Delivery 37-39 weeks; 37 if superimposed preE # Anemia with Hb 10.7 at 28 weeks Ferrous sulfate QOD # Bilateral carpal tunnel. Recommended wrist braces at 28 weeks. # Asthma. No inhaler use since cessation of smoking. # Suspected macrosomia on US at 28 weeks and 32 # GBS positive. Allergic to penicillins, causing hives. Cefazolin in case of SROM 05/20/24: Dating US. 8 weeks, 5 days by CRL, sonographic DILIP 12/25/24. FAS 08/12/24: EFW 384 g, 55th percentile. Visualized anatomy is within normal limits. Suboptimal visualization of the spine, nose/lips, heart, kidneys, hands and feet. Repeat in 4 weeks. Anterior placenta with no previa, cervix is 4.4 cm. 09/09/2024: Cephalic, SDP 3.2 cm, normal heart views and three-vessel trachea view. Normal feet, kidneys, spine, nose and lips. Normal hands. 10/07/24: cephalic, SDP 4.8 cm, EFW 96.1%, AC 93.4%, BPD 91.5%, HC 90.6%, FL 80%. 11/02/24: EFW 2415g at 92.5%ile, AC >97%ile. MVP 4.2cm, vertex, 12/10 BPP. Tdap: 10/12 Mental Health: PHQ9 of 9, JERRICA 0. Meds Home Medications and Allergies Home Medications ?Medication ?Instructions ?Recorded ?Confirmed ?Type albuterol 90 mcg/actuation aerosol mcg inhalation 05/20/24 12/02/24 History inhaler docosahexaenoic acid 200 mg 200 mg PO DAILY 05/20/24 12/02/24 History capsule ( DHA) aspirin 81 mg tablet,delayed 81 mg PO QDAY #60 tabs 06/17/24 12/02/24 Rx release (Adult Low Dose Aspirin) ferrous sulfate 325 mg (65 mg 325 mg PO Q OTHER DAY #60 tabs 10/07/24 12/02/24 Rx iron) tablet,delayed release labetalol 300 mg tablet 300 mg PO TID #30 tabs 11/30/24 12/02/24 Rx Allergies Allergy/AdvReac Type Severity Reaction Status Date / Time amoxicillin Allergy Severe Hives Verified 12/02/24 11:31 Penicillins Allergy Severe Hives Verified 12/02/24 11:31 sulfamethoxazole (From Allergy Severe Hives Verified 12/02/24 11:31 Bactrim) trimethoprim (From Bactrim) Allergy Severe Hives Verified 12/02/24 11:31 OB - H&P: Exam Physical Exam: Vital signs: Temp Pulse Resp BP Pulse Ox 98.2 F 88 16 159/75 H 97 12/02/24 11:22 12/02/24 13:55 12/02/24 11:22 12/02/24 13:55 12/02/24 11:20 Narrative: GENERAL APPEARANCE: Pleasant, , well-groomed woman in no acute distress. VITAL SIGNS: as noted in nursing notes HEAD: Normocephalic, atraumatic. THYROID: no masses, nodularity, tenderness or enlargement. LUNGS: Clear to auscultation bilaterally without wheezes, rales or rhonchi. HEART: Regular rate and rhythm with normal S1 and S2. No gallop, rub or murmur. ABDOMEN: Gravid. Soft, nontender, nondistended, with normal bowels sounds throughout. EFM: Baseline: 142 bpm. Accelerations: Present. Decelerations: Absent. Contractions 1 in 20 minutes. Reactive. TOCO: 1 ctx [id number]. SVE: Deferred EXTREMITIES: No cyanosis, clubbing, or varices. 2-3 +bilateral lower extremity edema to the mid viramontes. NEUROLOGIC: Normal gait and balance. Normal deep tendon reflexes at bilateral patella 2+/2, equal without clonus. PSYCHIATRIC: alert and oriented x3. Normal speech pattern, eye contact and affect. SKIN: Warm, dry, and well perfused. Good turgor. No lesions, nodules or rashes. OB - Results Labs Labs: Short CBC 12/02/24 Range/Units 11:49 WBC 8.98 (4.50-11.00) K/uL Hgb 10.4 L (12.0-16.0) gm/dL Hct 31.3 L (33.0-51.0) % Plt Count 139 L (140-440) K/uL BMP 12/02/24 11:49 Creatinine 0.4 L Liver Function 12/02/24 Range/Units 11:49 AST 22 (12-35) U/L ALT 13 (4-35) U/L OB - Problem Based A/P Additional Plan (1) Pre-eclampsia superimposed on chronic hypertension: Status: Acute Plan 1. Preeclampsia labs Q 6 hours while on magnesium. 2. Consent form for the low-transverse reviewed with the patient 3. Moved to the operating room as soon as able. 4. Received 1 dose of oral nifedipine 10 mg when she blood pressure 180/70s due to lack of IV access. 5. Labetalol and hydralazine her hypertension protocol. 6. Increase labetalol to 400 mg t.i.d. post op.
[2024-12-02] MEDS: MAGNESIUM Infusion 40 GM/1,000 ML IV.SOLN IVPB (14:25)
[2024-12-02] MEDS: LACTATED RINGERS 1000 ML 1,000 ML 75 ML IV (15:22)
--- NOTE | 2024-12-02 15:44 | P.NB_ITS ---
Nerve Block Nerve Block Time Seen by Provider: 16:19 Date Seen: 12/02/24 Type of block requested by surgeon for post-operative analgesia: TAP Side: bilateral Time out performed: Yes Verification of patient name: Yes Verification of date of : Yes Site marking: site marked Name of person performing procedure: Clive Silva Continuous monitoring Was continuous monitoring of O2 sat, B/P, flow coordinator, recorded every 15 minutes?: Yes Procedure Checklist: sterile prep, needles and gloves Ultrasound guided. Images saved: Yes Medications given in 5ml increments after negative aspiration: Marcaine %: 0.25 mL: 30 Needle gauge: 20 and Exparel mL: 10 Needle gauge: 20 Patient tolerated procedure well: Yes Additional comments: Injected in 5 mL increments after negative aspiration Block Charges Block Charge (with Pro Fee): TAP Bilateral Use of Ultrasound Machine for Block: Yes- US Guidance/pain block
--- NOTE | 2024-12-02 15:51 | P.ANES_ITS ---
Anesthesia Charges Start Date/Time Anesthesia Start Date: 12/02/24 Anesthesia Start Time: 14:53 Stop Date/Time Anesthesia Stop Date: 12/02/24 Anesthesia Stop Time: 16:28 Summary Emergency: OPERATIONS CLERK Coding CPT Codes CPT Codes: ANESTH CS DELIVERY - 81269 ([id number]) P3 - PATIENT W/SEVERE SYS DISEASE, QZ - OPERATIONS CLERK SVC W/O RESIN PAINTER BY Additional Codes: Summary - Emergency: OPERATIONS CLERK ([id number])
--- NOTE | 2024-12-02 15:51 | W.ANESCHARGE ---
Anesthesia Charges Start Date/Time Anesthesia Start Date: 12/02/24 Anesthesia Start Time: 14:53 Stop Date/Time Anesthesia Stop Date: 12/02/24 Anesthesia Stop Time: 16:28 Summary Emergency: WASTEWATER TREATMENT SUPERVISOR Coding CPT Codes CPT Codes: ANESTH CS DELIVERY - 72166 ([id number]) P3 - PATIENT W/SEVERE SYS DISEASE, QZ - WASTEWATER TREATMENT SUPERVISOR SVC W/O STAFF REPORTER BY Additional Codes: Summary - Emergency: WASTEWATER TREATMENT SUPERVISOR ([id number])
[2024-12-02] MEDS: ACETAMINOPHEN 500 MG TABLET 1000 MG PO (18:14)
[2024-12-02 19:29] LABS: Hematocrit 32.7 % (33.0-51.0); Hemoglobin* 10.8 gm/dL (12.0-16.0); Mean Corpuscular HGB Conc 33 gm/dL (32-36); Mean Corpuscular Hemoglobin 28 pg (26-34); Mean Corpuscular Volume 85 fL (80-100); Red Blood Count 3.86 m/uL (4.00-5.20); White Blood Count* 13.80 K/uL (4.50-11.00)
[2024-12-02 19:40] LABS: Slide Review Reflex No
[2024-12-02 19:55] LABS: Alanine Aminotransferase* 14 U/L (4-35); Aspartate Amino Transferase* 26 U/L (12-35); Blood Urea Nitrogen* 3 mg/dL (5-24); Creatinine* 0.5 mg/dL (0.5-1.5); Est. Creatinine Clearance* 156.82; Estimated Glomerular Filt Rate 131 ml/min
[2024-12-02] MEDS: LABETALOL HCL 100 MG TABLET 400 MG PO (22:06)
[2024-12-02] MEDS: ENOXAPARIN 40 MG/0.4 ML INJ SUBCUT (22:06)
[2024-12-02] MEDS: LACTATED RINGERS 1000 ML 1,000 ML 50 ML IV (23:45)
[2024-12-03] VITALS (9 sets, daily range): BP systolic 95–128; BP diastolic 60–79; PULSE 75–88; RESP 16–18; TEMP 36.5–36.9; O2SAT 95–98
[2024-12-03 01:24] LABS: Hematocrit 30.5 % (33.0-51.0); Hemoglobin* 10.1 gm/dL (12.0-16.0); Mean Corpuscular HGB Conc 33 gm/dL (32-36); Mean Corpuscular Hemoglobin 28 pg (26-34); Mean Corpuscular Volume 85 fL (80-100); Red Blood Count 3.59 m/uL (4.00-5.20); White Blood Count* 14.82 K/uL (4.50-11.00)
[2024-12-03 01:26] LABS: Slide Review Reflex No
[2024-12-03 01:47] LABS: Alanine Aminotransferase* 16 U/L (4-35); Aspartate Amino Transferase* 29 U/L (12-35); Blood Urea Nitrogen* 5 mg/dL (5-24); Creatinine* 0.5 mg/dL (0.5-1.5); Est. Creatinine Clearance* 156.82; Estimated Glomerular Filt Rate 131 ml/min
[2024-12-03 07:14] LABS: Hematocrit 27.3 % (33.0-51.0); Hemoglobin* 8.9 gm/dL (12.0-16.0); Mean Corpuscular HGB Conc 33 gm/dL (32-36); Mean Corpuscular Hemoglobin 28 pg (26-34); Mean Corpuscular Volume 85 fL (80-100); Red Blood Count 3.20 m/uL (4.00-5.20); White Blood Count* 13.42 K/uL (4.50-11.00)
[2024-12-03 07:15] LABS: Slide Review Reflex No
[2024-12-03 07:29] LABS: Alanine Aminotransferase* 12 U/L (4-35); Aspartate Amino Transferase* 25 U/L (12-35); Blood Urea Nitrogen* 4 mg/dL (5-24); Creatinine* 0.5 mg/dL (0.5-1.5); Est. Creatinine Clearance* 156.82; Estimated Glomerular Filt Rate 131 ml/min
--- NOTE | 2024-12-03 08:03 | PM.OBPNVD1 ---
OB - PN:Subj Subjective Date Seen: 12/03/24 Interval history: The patient is a 29-year-old 3 now para 1112 who is post operative day 1. Following a repeat low transverse section at 36 5/7 weeks gestation for chronic hypertension with superimposed severe preeclampsia. She delivered yesterday afternoon, and will come off her magnesium sulfate infusion at 3:25 p.m. this afternoon. She feels dizzy and week this morning, possibly due to the magnesium. She denies increased swelling, headaches, or uncontrolled incisional pain. She is working on breast-feeding, but has had to do some supplementing overnight. Her is reportedly doing well. The patient is on labetalol 400 mg t.i.d. and nifedipine ER 30 mg q.d.. In the past, she had complained of headache and dizziness when she tried nifedipine. Blood pressures yesterday following delivery were 140s to 150s over 70s to 80s, and overnight 103-135/67-78. Urine output 1525 mL overnight, positive fluid balance. Kremlin feeding status: breast and bottle feeding OB - PN: Obj Exam Physical Exam: Vital signs: Temp Pulse Resp BP Pulse Ox O2 Del Method 98.2 F 77 16 112/68 97 Room Air 12/03/24 01:17 12/03/24 05:05 12/03/24 05:05 12/03/24 05:05 12/03/24 05:05 12/03/24 05:05 Constitutional: Constitutional: no acute distress Routine Neck Exam: Neck: Present normal inspection Routine Respiratory Exam: Respiratory: Present CTA bilaterally; Absent respiratory distress Routine Cardiovascular Exam: Cardiovascular: Present RRR; Absent murmur Routine Abdominal Exam: Abdominal: Present soft; Absent tenderness Fundus: Present firm Routine Extremities Exam: Extremities: Present normal inspection and pedal edema; Absent calf tenderness Routine Neurological Exam: Neurological: Present alert and oriented X3 Routine Psychiatric Exam: Psychiatric: Present normal affect Wound Management: Method: suture Examination: Present clean and dry Comments: Pfannenstiel incision, silver Mepilex dressing present OB - PN: Obj Data Labs Labs: Laboratory Results - last 24 hr 12/02/24 12/02/24 12/02/24 11:49 11:50 19:23 WBC 8.98 13.80 H RBC 3.70 L 3.86 L Hgb 10.4 L 10.8 L Hct 31.3 L 32.7 L MCV 85 85 MCH 28 28 MCHC 33 33 Plt Count 139 L 169 BUN 3 L Creatinine 0.4 L 0.5 Estimated Creat Clear 156.82 Estimated GFR 138 131 Magnesium 4.5 H* AST 22 26 ALT 13 14 Urine Opiates Screen Negative Ur Oxycodone Screen Negative Urine Methadone Screen Negative Ur Barbiturates Screen Negative U Tricyclic Antidepress Negative Ur Phencyclidine Scrn Negative Ur Amphetamines Screen Negative U Methamphetamines Scrn Negative U Benzodiazepines Scrn Negative Urine Cocaine Screen Negative U Marijuana (THC) Screen Negative Ur Drug Screen Comment See Note Blood Type O Positive Antibody Screen NEGATIVE 12/03/24 12/03/24 01:17 07:07 WBC 14.82 H 13.42 H RBC 3.59 L 3.20 L Hgb 10.1 L 8.9 L Hct 30.5 L 27.3 L MCV 85 85 MCH 28 28 MCHC 33 33 Plt Count 183 176 BUN 5 4 L Creatinine 0.5 0.5 Estimated Creat Clear 156.82 156.82 Estimated GFR 131 131 Magnesium 5.2 H* 5.3 H* AST 29 25 ALT 16 12 Urine Opiates Screen Ur Oxycodone Screen Urine Methadone Screen Ur Barbiturates Screen U Tricyclic Antidepress Ur Phencyclidine Scrn Ur Amphetamines Screen U Methamphetamines Scrn U Benzodiazepines Scrn Urine Cocaine Screen U Marijuana (THC) Screen Ur Drug Screen Comment Blood Type Antibody Screen OB - PN: A/P Delivery Assessment and Plan (1) Pre-eclampsia superimposed on chronic hypertension: Status: Acute (2) Anemia due to acute blood loss: Problem details: Hemoglobin 8.9 on 12/03/2024 Status: Acute Plan day: 1 Plan: routine care Comments: Will continue labetalol and nifedipine as prescribed. I am hopeful that the patient will feel better once the magnesium sulfate infusion is discontinued this afternoon.
[2024-12-03] MEDS: LABETALOL HCL 100 MG TABLET 400 MG PO (08:54)
[2024-12-03] MEDS: DOCUSATE SODIUM 100 MG CAPSULE PO (08:55)
[2024-12-03] MEDS: MAGNESIUM Infusion 40 GM/1,000 ML IV.SOLN IVPB (09:11)
[2024-12-03] MEDS: LACTATED RINGERS 1000 ML 1,000 ML 75 ML IV ×3 (10:06→13:43)
[2024-12-03 13:30] LABS: Hematocrit 28.6 % (33.0-51.0); Hemoglobin* 9.5 gm/dL (12.0-16.0); Mean Corpuscular HGB Conc 33 gm/dL (32-36); Mean Corpuscular Hemoglobin 29 pg (26-34); Mean Corpuscular Volume 86 fL (80-100); Red Blood Count 3.32 m/uL (4.00-5.20); White Blood Count* 12.86 K/uL (4.50-11.00)
[2024-12-03 13:36] LABS: Slide Review Reflex No
[2024-12-03 13:48] LABS: Alanine Aminotransferase* 15 U/L (4-35); Aspartate Amino Transferase* 27 U/L (12-35); Blood Urea Nitrogen* 5 mg/dL (5-24); Creatinine* 0.6 mg/dL (0.5-1.5); Est. Creatinine Clearance* 130.68; Estimated Glomerular Filt Rate 125 ml/min
[2024-12-03] MEDS: ACETAMINOPHEN 500 MG TABLET 1000 MG PO (20:29)
[2024-12-03] MEDS: ENOXAPARIN 40 MG/0.4 ML INJ SUBCUT (22:27)
[2024-12-04 00:54] VITALS: BP 110/71; PULSE 77; RESP 16; TEMP 36.7; O2SAT 98
[2024-12-04 04:30] VITALS: BP 123/80; PULSE 80; RESP 16; TEMP 37.2; O2SAT 98
[2024-12-04] MEDS: ACETAMINOPHEN 500 MG TABLET 1000 MG PO (07:43)
--- NOTE | 2024-12-04 08:19 | PM.OBDSVD1 ---
DS: Providers Provider Time Seen by Provider: 07:45 Date Seen: 12/04/24 Date of admission: 12/02/24 13:10 Primary care physician: Not a Local Provider Admitting Clinician: Mary Sullivan MD Attending Physician on discharge: Mary Sullivan MD Date of Discharge: 12/04/24 DS: Diagnosis Discharge Diagnosis (1) Status post repeat low transverse section: Status: Acute Problem details: At 36w5d due to cHTN w/ superimposed preeclampsia w/ severe features. Exam Narrative: Exam Narrative: General: Pleasant, , well groomed woman in no acute distress. Vital signs: Included in her electronic medical record. Heart: Regular rate and rhythm without gallop, rub or murmur. Chest: Clear to auscultation bilaterally. Abdomen: Soft, nontender and nondistended with normal bowel sounds throughout. No CVA or flank tenderness. Fundus is firm and 2 cm below the umbilicus in midline preoperative Incision(s): Silver-containing dressing in place, dry and intact. Extremities: No pain or edema. Const: Vital Signs, click to edit/add: Vital Signs - 24 hr 12/03/24 08:55 12/03/24 11:00 12/03/24 13:00 Temperature 98.0 F Pulse Rate [Pulse Oximeter] 84 79 79 Respiratory Rate 16 18 18 Blood Pressure [Le ft Arm] 128/79 104/79 108/79 Pulse Oximetry 97 98 Oxygen Delivery Me thod Room Air Room Air 12/03/24 15:00 12/03/24 18:00 12/03/24 20:15 Temperature 97.7 F 98.4 F Pulse Rate [Pulse Oximeter] 87 88 75 Respiratory Rate 16 16 16 Blood Pressure [Le ft Arm] 95/60 117/77 115/77 Pulse Oximetry 96 98 96 Oxygen Delivery Me thod Room Air Room Air Room Air 12/04/24 00:54 12/04/24 04:30 Temperature 98.0 F 98.9 F Pulse Rate [Pulse Oximeter] 77 80 Respiratory Rate 16 16 Blood Pressure [Le ft Arm] 110/71 123/80 Pulse Oximetry 98 98 Oxygen Delivery Me thod Room Air Room Air OB - DS: Summary Hospital Course Hospital Course: Sara is a 29 year old G 2 P 1 now 2 at 36 and 5/7 weeks gestation that was admitted to the Center on 12/02/24 for low-transverse due to chronic hypertension with superimposed severe preeclampsia by blood pressure criteria. She had an uncomplicated delivery. She delivered a viable male infant. She is breast feeding. the patient has done well with normal BP, labetalol has been discontinued and continue . Peripartum Data delivery method: Repeat Section Procedures: Procedures Operation Date: 12/02/24 13:30 Actual Procedure Side Surgeon p Repeat Section Mary Sullivan MD Gender: Male Time Spent with Patient Time attestation: Total time spent providing and/or coordinating discharge services: Discharge Plan Discharge Disposition: Home, Self-Care Date of Admission: 12/02/24 13:10 Attending Provider on Discharge: Mary Sullivan Primary Care Provider: Provider,Not a Local Condition: Improved Anticipated Discharge Date/Time: 12/04/24 12:30 Discharge Medications: New nifedipine 30 mg Tablet Extended Release 30 mg PO DAILY Qty: 60 1RF docusate sodium 100 mg Capsule 100 mg PO BID PRNQty: 100 0RF ibuprofen 600 mg Tablet 600 mg PO Q6H PRN (Reason: Pain) Qty: 30 0RF oxycodone 5 mg Tablet 5 mg PO 3XD PRN (Reason: Pain) Qty: 21 0RF Continued ferrous sulfate 325 mg (65 mg iron) tablet,delayed release (DR/EC) 325 mg PO Q OTHER DAY Qty: 60 0RF albuterol 90 mcg/actuation aerosol 90 mcg inhalation .PRN DHA 200 mg capsule 200 mg PO DAILY Discontinued aspirin [Adult Low Dose Aspirin] 81 mg tablet,delayed release (DR/EC) 81 mg PO QDAY Qty: 60 3RF labetalol 300 mg tablet 300 mg PO TID Qty: 30 0RF Discharge Orders: Discharge Order (Routine); Ordered 12/04/24 Ordered By: Mary Sullivan Patient Education: (DC) Additional Instructions: ACTIVITY RESTRICTIONS: Nothing vaginally for 6 weeks: no tampons/intercourse No driving while taking narcotic pain medication during the day. 1-2 weeks. Lifting restriction: Maximum of 20 pounds for 6 weeks. No high impact or core exercises: 6 weeks. Do not submerge the incision in water (bath/pool/bianchi): 2 weeks. Off of work/school for a minimum of 8 weeks NO RESTRICTIONS for: Walking Going up/down stairs Showering Being a passenger in a motor vehicle. Symptoms to report to doctor: Bleeding that saturates more than one pad per hour Passing clots larger than the size of a golf ball Pain not relieved by prescribed medication Fever: temperature 100.4o Fahrenheit A foul vaginal odor Difficulty in emotions, mood and functions Thoughts of hurting yourself and/or Painful, reddened area in your breast Any drainage, redness or tenderness in your IV/epidural site Severe headache that doesn't improve after taking medications Changes in vision, including temporary loss of vision, blurred vision, and/or light sensitivity Upper abdominal pain (especially if under ribs on the right side) Decrease in urination or painful, frequent urinating Chest pain Shortness of breath Tenderness or pain with redness and/swelling in the calf(s) of your leg Concerns about your incision: increased pain, swelling, redness or drainage. For Blood Pressure: Check your blood pressure at home at least once a day. Be seen in the clinic for a BP check on 12/07/2024. Contact the clinic at if your BP >/= 140/90 or </= 90/60 to get recommendations on medication management. Go to the Emergency Department if your BP is >/= 160/110. Follow-up: 1. Incision check to remove your dressing on 12/09/2024. 2. 2 week visit: Screen for anxiety/depression, discuss contraceptive options, incision check and answer questions regarding self and care. 3. A 6 week visit for an annual physical exam. For Pain: Take ibuprofen 600mg every 6 hours and ES Tylenol 1,000mg (2 tablets/capsules) every 6 hours: Alternate these every 3 hours. Example: Take ibuprofen at 9am, Tylenol at Noon, ibuprofen at 3pm, Tylenol at 6pm, etc. Add a tablet of oxycodone up to 3 times a day if needed. consultation services are available to all mothers and babies for the first year after delivery. To make an appointment, please call [phone]. Activity Level: Other Discharge Diet: Other Follow Up Appointments: Provider,Not a Local [Primary Care Provider, Family Practice] [facility] [Outside] Forms: MyHealth Info Instructions
[2024-12-04 08:25] VITALS: BP 128/70; PULSE 90; RESP 18; TEMP 37; O2SAT 98
== END 2024-12-04 11:00 | disposition home or self-care (01) | DRG 540 ==
LOC: OB OUT 13:11 → OB 13:11
PROVIDERS: Admitting Provider Obstetrics & Gynecology; Visit Provider Obstetrics & Gynecology
PROC: 10D00Z1 Extraction of Products of Conception, Low, Open Approach (ICD-10-PCS; CPT 59514; principal; 2024-12-02 13:30)
DX: O14.14 Severe pre-eclampsia complicating childbirth (principal); Z37.0 Single live birth; O34.211 Maternal care for low transverse scar from previous cesarean delivery; O99.824 Streptococcus B carrier state complicating childbirth; G89.18 Other acute postprocedural pain; O99.02 Anemia complicating childbirth; D62 Acute posthemorrhagic anemia; Z87.891 Personal history of nicotine dependence; Z3A.36 36 weeks gestation of pregnancy; O10.913 Unspecified pre-existing hypertension complicating pregnancy, third trimester
CPT/HCPCS: 01961; 36415; 64488; 76942; 80306; 82565; 83735; 84450; 84460; 84520; 85027; 86592; 86850; 86900; 86901; 88307; 99140; A4314; A9270; J0665; J0666; J0690; J1100; J1650; J1885; J2371; J2405; J2590; J3475; J7120

== ENCOUNTER 2024-12-07 21:49 | Emergency (ER) | payer BC, SELFPAY ==
[2024-12-07] VITALS (20 sets, daily range): BP systolic 142–157; BP diastolic 74–91; PULSE 64–85; RESP 16; TEMP 36.4; O2SAT 96–98; BMI 46.0
--- OUTSIDE RECORDS SUMMARY | 2024-12-07 21:51 | XMS_ITS ---
Author Organization [facility] Source Produ ction (ClinicalSummary Clone) Address Unknown Care Team Providers Care Jack Frame Tender Name Role Phone Unavailable Primary Care Physician Unavailab le Results * [[facility]] ANEUPLOIDY NIPT Performed by: Purple Harry Component Value Range Date Fraction 3.9% 06/10/2024 10 :22 pm UTC Sex Chromosome Aneuploidy NOT DETECTED 10:22 pm UTC Monosomy X LOW RISK <1 in 10,000 2024 10:22 pm UTC Trisomy 13 LOW RISK <1 in 10,000 2024 10:22 pm UTC Trisomy 18 LOW RISK <1 in 10,000 2024 10:22 pm UTC Trisomy 21 LOW RISK <1 in 10,000 2024 10:22 pm UTC Sex MALE 06/10/2024 10:2 2 pm UTC Gestation PEDRO 06/10/19 10:22 pm UTC For detailed report, see PDF See PDF 06/10/2024 10:22 pm UTC 06/10/2024 10:2 2 pm UTC Social History Observation Value Start Date End Date
--- OUTSIDE RECORDS SUMMARY | 2024-12-07 21:51 | XMS_ITS | Clinical Summary ---
Author Organization [facility] Address [address] [place] [id number] Care Team Providers Care Armament Installer Name Role Phone Giana Pham MD Primary Care Provider [phone] Allergies Active Allergy Reactions Criticality Noted Date [...] 09/05/2014 No active medical problems 08/29/2011 1 Encounters Date Type Department Care Team Description 12/03/2024 Lab Requisition [facility] [phone] Mary Felton MD from Last 3 Months Immunizations Immunization Administration Dates Next Due COVID-19 vaccine ([employer] 30mcg/0.3mL) MARLENE LOU 06/24/2020,06/01/2020 DTP 01/13/2001, 8,1996,07/09,1996 HIB PRP-OMP (PedvaxHIB) [...] Date Smoking Tobacco: Every Day Cigarettes 1 10.7 Started: 04/04/2014 Smokeless Tobacco: Never Tobacco Cessation:Ready [...] on file Legal Sex Female 5:39 AM DOCTOR OF NURSE ANESTHESIA Gender Identity Not on file Sexual Orientation [...] 9 10 BG JULIET(Viridiana MEJIA ) Delivery Location:[facility] Current Last Filed Vital Signs Vital Sign Reading Time Taken Comments Blood Pressure 131/63 07/08/2024 12:13 PM DOCTOR OF NURSE ANESTHESIA Pulse 104 07/08/2024 12:13 PM DOCTOR OF NURSE ANESTHESIA Temperature 36.6 C (97.9 F) 07/08/2024 12:13 PM DOCTOR OF NURSE ANESTHESIA Respiratory Rate 20 07/08/2024 12:1 3 PM DOCTOR OF NURSE ANESTHESIA Oxygen Saturation 96% 07/08/2024 12: 13 PM DOCTOR OF NURSE ANESTHESIA Inhaled Oxygen Concentration - - Weight 109.5 kg (241 lb 6.4 oz) 025 12:13 PM DOCTOR OF NURSE ANESTHESIA Height 167.6 cm (5' 6) 02/11/2023 3:12 PM CDT Body Mass Index 38.96 02/11/2023 3:12 PM CDT Plan of Treatment Health Maintenance Due Date Last Done Comments Hepatitis C screening for ag e 18-79 2014 Pneumococcal series for age 6-49 (1 of 2 - PCV) 2015 COVID-19 vaccine series (3 - season) 2024 06/24/2020, 06/01/2020 BMI (ht and wt on same day) for age 18+ 02/12/2024 02/11/2023, 10/15/2022, 09/10/2021, Additional history exists Depression screening for age 12+ 02/12/2024 02/11/2023, 05/08/2021, 03/30/2021, Additional history exists Pap test for age 21-65 03/30/2024 , 03/30/2021, 11/13/2017 Tetanus booster 08/03/2024 08/03/2014, 10/15/2006 Influenza Vaccine (#1) 2025 , 03/06/2020, 04/27/2012 Hepatitis B series for 19+ Completed 10/15, 1996, 1996, Additional history exists HIV for age 15-65 Completed 05/20/2014 RSV vaccine for adults or (No Doses Required) Completed Goals Goal Patient Goal Type Associated Problems Recent Progress Patient-Stated? Author BLOOD PRESSURE - MAINTAINS BP less than 140/90 Blood Pressure No Eduard Garduno MD Procedures Procedure Name Priority Date/Time Associated Diagnosis Comments PATH TISSUE EXAM PLACENTA Routine 12/02/2024 3:34 PM CDT LAB TRACKING EVENT Routine 12/02/2024 1: 52 AM CDT HPV HIGH RISK Routine 03/30/2021 11:51 AM DOCTOR OF NURSE ANESTHESIA Screening for malignant neoplasm of cervix ANTI HIV 1/2 Routine 05/20/2014 3:12 PM DOCTOR OF NURSE ANESTHESIA Supervision of other normal (HC) from Last 3 Months or Most Recently Relevant to Health Maintenance Results * PATH TISSUE EXAM PLACENTA (12/02/2024 3:34 PM CDT) Case Report Pathology Report Case: [id number] Authorizing Provider: Mary Sullivan Collected: 12/02/2024 1534 MD Gisel Ordering Location: [facility] Received: 12/03/2024 1352 Pathologist: Megha Rios MD Specimen: Placenta 12/07/2024 11:32 AM CDT [facility] Final Diagnosis A) PLACENTA, DELIVERY: 1. Third trimester nieves placenta with the following characteristics: a. Weight: 651 grams (36 week 10-90th percentile weight range, 372 - 542 grams) b. Membranes/ surface: Negative for chorioamnionitis c. Umbilical cord: Three vessel cord Negative for funisitis d. Disc/Villi: Accelerated villous maturation with excessive extra villous trophoblast Multifocal low-grade chronic villitis Small intraparenchymal hematoma, less than 5% of disc e. Decidua/basal plate: Decidual arteriopathy Chronic periarteritis Incomplete spiral artery remodeling Superficial implantation 2. See comment 12/07/2024 11:32 AM CDT [facility] at 1132 CDT Comment The high placental weight, accelerated maturation, and decidual arteriopathy are consistent with maternal vascular malperfusion of the placental bed. Such findings are usually associated with maternal hypertension, but can also be associated with maternal diabetes, collagen vascular disease, suboptimal placental position/implantat ion (including uterine abnormalities such as fibroids) or other etiology affecting the maternal vessels and/or perfusion of the placenta. Low-grade chronic villitis is often seen in the setting of severe maternal vascular malperfusion of the placental bed, possibly due to maternal vascular injury with subsequent abnormal maternal- alloimmune reaction. Low-grade chronic villitis is usually clinically silent. 12/07/2024 11:32 AM CDT [facility] Clinical Information Indications for Placental Examination by Pathology Severe preeclampsia Clinical information: Date of delivery: 12/02/2024 Time of delivery: 152 Type of delivery: Live born:Yes Gestational age: 36.5 weeks weight of (s): 3460 grams Sex of (s): Male Pertinent Maternal History: Maternal parity: G 3 P 2 Diabetes: No Hypertension: Yes Eclampsia: No Smoking: No 12/07/2024 11:32 AM CDT [facility] Gross Description A) Received fresh labeled with the patient's name and placenta, is a 651 gram, 21.0 x 16.3 x 3.5 cm nieves placenta. The surface is blue-tobias with evenly distributed vasculature and a partially detached amnion. The 20.5 cm long, 1.5 cm diameter trivascular and white umbilical cord is eccentrically inserted 7.5 cm from the nearest edge of the placental plate. The cord displays 1-2 twists per 10 cm. True knots are not present. No lesions are grossly identified. The marginally inserted extraplacental membranes are [place]-pink and semitranslucent with yellow patchy areas. The maternal surface is red-brown, and displays focally disrupted cotyledons that can be reapproximated with loosely adherent blood clots. Sectioning reveals a red-brown, spongy and slightly congested cut surface. There is a single [place]عر[place]-yellow lesion measuring 1.2 cm in greatest dimension that encompasses less than 5% of the surface. The lesion is present in the central portion of the disc. Professor Of French sections are submitted: 1. membranes and insertion 2. Umbilical cord 3. Umbilical cord insertion site, full-thickness 4-5. Central sections, full-thickness 6. Lesion Time and date in formalin: 1453 on 12/03/2024 DS 12/03/2024 12/07/2024 11:32 AM CDT [facility] Microscopic Description The final diagnosis is based on microscopic examination of appropriate sections of all specimens. 12/07/2024 11:32 AM CDT [facility] Additional Information Interpreted at [facility] - [address] [place] [address] 12/07/2024 11:32 AM CDT [facility] Tissue SPECIMEN FROM PLACENTA / Unknown 12/02/2024 3:34 PM CDT 12/03/2024 1:52 PM CDT Mary Sullivan MD PATHOLOGY/CYTOLOGY Final Result Performing Organization Address [facility] Co de Phone Number [facility] [address] [place] [address], [place] * LAB TRACKING EVENT (12/02/2024 1:52 AM CDT) Other (Other) Client Collect / Unknown 12/02/2024 1:52 AM CDT 12/03/2024 1:31 PM CDT Mary Sullivan MD LAB BILL ONLY Fi nal Result Performing Organization Address City/[facility]/ZIP Co de Phone Number [facility] [address] [place] [address], [place] * HPV HIGH RISK (03/30/2021 11:51 AM DOCTOR OF NURSE ANESTHESIA) TYPE 16 Negative Negative 04/17/2021 11:25 AM DOCTOR OF NURSE ANESTHESIA [facility] TYPE 18 Negative Negative 04/17/2021 11:25 AM DOCTOR OF NURSE ANESTHESIA [facility] OTHER HIGH RISK TYPES Negative Negative 04/17/2021 11:25 AM DOCTOR OF NURSE ANESTHESIA [facility] Other (Cervical) Non-Blood / Unknown 03/30/2021 11:51 AM DOCTOR OF NURSE ANESTHESIA 04/16/2021 10:21 AM DOCTOR OF NURSE ANESTHESIA Narrative [facility] - 04/17/2021 11:25 AM DOCTOR OF NURSE ANESTHESIA HPV types 16, 18, 31, 33, 35, 39, 45, 51, 52, 56, 58, 59, 66 and 68 DNA were undetectable or below the pre-set threshold. Methodology: Ag Autumn 4800 HPV Test Giana Pham MD MICROBIOLOGY Final Resu lt [facility] [address] [place] [address], * ANTI HIV 1/2 [68614.0] (05/20/2014 3:12 PM DOCTOR OF NURSE ANESTHESIA) HIV-1/HIV-2 ANTIBODY Non-Reacti ve Non-Reacti ve 05/20/2014 8:13 PM DOCTOR OF NURSE ANESTHESIA [facility] Blood specimen (specimen) BLOOD SPECIMEN / Unknown Venipuncture / Unknown 05/20/2014 3:12 PM DOCTOR OF NURSE ANESTHESIA 05/20/2014 3:12 PM DOCTOR OF NURSE ANESTHESIA Narrative [facility] - 05/20/2014 8:13 PM DOCTOR OF NURSE ANESTHESIA HIV-1 p24 and HIV-1/HIV-2 Ab not detected Giana Pham MD SEND OUTS Final Resu lt [facility] [address] [place] [address], from Last 3 Months or Most Recently Relevant to Health Maintenance Insurance [address] [place] [id number] [facility] Advance Directives * Full Code (Latest [...] 10:27 AM 05/30/2014 2:29 PM Care Teams Armament Installer Relationship Specialty Start Date End Date Giana Pham MD [address] [place] [address] PCP - General Family Practice 04/18/14
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
[2024-12-07 22:48] LABS: Hematocrit 28.6 % (33.0-51.0); Hemoglobin* 9.0 gm/dL (12.0-16.0); Immature Granulocytes Abs Auto 0.27 K/uL (0.00-0.30); Immature Granulocytes Pct Auto 3.0 %; Mean Corpuscular HGB Conc 32 gm/dL (32-36); Mean Corpuscular Hemoglobin 28 pg (26-34); Mean Corpuscular Volume 88 fL (80-100); RDW Coefficient of Variation % 14.2 % (11.5-15.5); Red Blood Count 3.26 m/uL (4.00-5.20); White Blood Count* 9.05 K/uL (4.50-11.00)
[2024-12-07 22:51] LABS: Lymphocytes Absolute Auto 1.50 K/uL (0.90-2.90); Slide Review Reflex No
[2024-12-07 22:51] LABS: Appearance Urine Clear (Clear)
[2024-12-07 23:03] LABS: Albumin* 3.5 g/dL (3.3-5.0); Chloride* 108 mmol/L (96-114); Potassium* 4.3 mmol/L (3.6-5.1); Sodium* 137 mmol/L (135-149)
[2024-12-07 23:06] LABS: Alanine Aminotransferase* 30 U/L (4-35); Alkaline Phosphatase* 173 U/L (40-150); Anion Gap 4 mEq/L (7-15); Aspartate Amino Transferase* 39 U/L (12-35); Bilirubin Total* 0.3 mg/dL (0.1-1.5); Blood Urea Nitrogen* 13 mg/dL (5-24); Calcium* 9.3 mg/dL (8.4-10.6); Carbon Dioxide* 25 mmol/L (20-32); Creatinine* 0.6 mg/dL (0.5-1.5); Est. Creatinine Clearance* 130.68; Estimated Glomerular Filt Rate 125 ml/min; Glucose* 94 mg/dL (60-115); Total Protein* 6.5 g/dL (6.0-8.3)
== END 2024-12-08 00:58 | disposition home or self-care (01) ==
PROVIDERS: Emergency Provider Emergency Medicine
DX: O99.893 Other specified diseases and conditions complicating puerperium (principal); R03.0 Elevated blood-pressure reading, without diagnosis of hypertension
CPT/HCPCS: 36415; 80053; 81001; 83735; 85025; 87086; 99285; 99291; A9270

== ENCOUNTER 2025-01-12 14:53 | Outpatient (CLI) | payer BC, SELFPAY ==
[2025-01-15 13:15] LABS: HPV Source Cervix
[2025-01-19 09:00] LABS: Pap Test Digital Imaging Done
== END 2025-01-12 14:54 | disposition home or self-care (01) ==
PROVIDERS: Visit Provider Registered Nurse
DX: Z12.4 Encounter for screening for malignant neoplasm of cervix (principal)
CPT/HCPCS: 87624; 87625; 88141; 88142; 88175